=== PATIENT | female | born 1950 | race Caucasian/White ===

== ENCOUNTER → 2024-01-13 | Outpatient (CLI) | payer MEDICARE, MEDICAID, SELFPAY ==
[2024-01-13 10:44] LABS: Glucose Estimated Average 103 mg/dL (80-131); Hemoglobin A1C 5.2 % Hgb (4.8-6.0)
[2024-01-13 11:00] LABS: Sed Rate (ESR) 14 mm/hr (0-30)
[2024-01-13 11:03] LABS: Basophils # (Auto) 0.1 Thou/mm3 (0.0-0.2); Basophils % (Auto) 1 % (0-2.5); Eosinophils # (Auto) 0.1 Thou/mm3 (0.0-0.5); Eosinophils % (Auto) 1 % (0-10); Hematocrit 36.4 % (36.0-46.0); Hemoglobin 12.7 g/dL (12.0-16.0); Immature Granulocytes % (Auto) 0 % (0-0); Immature Granulocytes Auto 0.02 Thou/mm3 (0.00-0.00); Lymphocytes # (Auto) 2.5 Thou/mm3 (1.0-4.8); Lymphocytes % (Auto) 26 % (10-50); Mean Corpuscular HGB Conc 34.9 g/dl (31.0-37.0); Mean Corpuscular Hemoglobin 33.5 pg (25.0-35.0); Mean Corpuscular Volume 96 fL (80-100); Monocytes # (Auto) 0.5 Thou/mm3 (0.0-0.8); Monocytes % (Auto) 6 % (0-12); Neutrophils # (Auto) 6.5 Thou/mm3 (1.8-7.7); Neutrophils % (Auto) 66 % (37-80); Nucleated Red Blood Cell % 0 /100 WBC (0); Platelet Count 279 Thou/mm3 (140-440); RDW Standard Deviation 44.1 fL (36.4-46.3); Red Blood Count 3.79 Miln/mm3 (4.00-5.20); White Blood Count 9.8 Thou/mm3 (3.6-11.0)
[2024-01-13 11:05] LABS: Alanine Aminotransferase 9 U/L (10-49); Albumin, Serum 4.2 gm/dL (3.4-4.8); Albumin/Globulin Ratio 2.2 (1.2-2.2); Alkaline Phosphatase 99 U/L (46-116); Anion Gap 5 (7-16); Aspartate Amino Transferase < 10 U/L (0-34); BUN/Creatinine Ratio 23 Ratio (12-20); Bilirubin,Direct 0.1 mg/dL (0.0-0.3); Bilirubin,Total 0.6 mg/dL (0.3-1.2); Blood Urea Nitrogen 18 mg/dL (9-23); C-Reactive Protein 5.6 mg/dL (0.0-0.9); Calcium 9.2 mg/dL (8.3-10.6); Calcium (Corrected) 9.2 mg/dL (8.5-10.1); Carbon Dioxide 29.2 mMol/L (20.0-31.0); Cardiac Risk Estimate 3.3 RATIO (3.7-5.6); Chloride 106 mMol/L (98-107); Cholesterol 180 mg/dL (132-200); Creatinine (Component) 0.8 mg/dL (0.6-1.3); Free T4 (Free Thyroxine) 1.13 ng/dL (0.89-1.76); Globulin 1.9 gm/dL (2.3-3.5); Glucose 93 mg/dL (74-106); HDL Cholesterol 55 mg/dL (40-60); LDL Cholesterol,Calculated 96 mg/dL (0-130); Osmolality,Calculated 281 (275-295); Potassium 3.8 mMol/L (3.4-5.1); Sodium 140 mMol/L (136-145); Thyroid Stimulating Hormone 1.22 uIU/mL (0.55-4.78); Total Protein 6.1 gm/dL (5.7-8.2); Triglycerides 146 mg/dL (30-150); eGFR > 60 See Note
[2024-01-13 11:28] LABS: B-Type Natriuretic Peptide 96 pg/mL (0-100)
[2024-01-13 14:32] LABS: Cocci Serology, IgM Negative (Negative)
[2024-01-14 13:47] LABS: Cocci Serology, IgG Negative (Negative)
== END | disposition home or self-care (01) ==
LOC: COPL 09:00
PROVIDERS: PCP Family Medicine; Referring Provider Internal Medicine Cardiovascular Disease; Visit Provider Nurse Practitioner
DX: I11.0 Hypertensive heart disease with heart failure (principal); I50.30 Unspecified diastolic (congestive) heart failure; R73.03 Prediabetes; R63.4 Abnormal weight loss; R05.9 Cough, unspecified
CPT/HCPCS: 36415; 80053; 80061; 80076; 83036; 83880; 84439; 84443; 85025; 85652; 86140; 86331; 86635

== ENCOUNTER 2024-01-23 12:24 | Emergency (ER) | payer MEDICARE, MEDICAID, SELFPAY ==
[2024-01-23 12:25] VITALS: BMI 19.0
[2024-01-23 12:32] VITALS: BP 155/64; PULSE 62; RESP 19; TEMP 36.8; O2SAT 95
--- NOTE | 2024-01-23 13:02 | XR_ITS ---
Examination:Right hip AP, lateral, AP pelvis 3 views Technique: Hip AP lateral, AP pelvis, 3 views Exam date and time:January 23, 2024 1314 hrs. Indications: Right hip pain today Findings: Moderate narrowing hip joints No right hip fracture or dislocation Left hip bones of the pelvis intact Impression: Moderate narrowing right hip joint.
--- NOTE | 2024-01-23 13:03 | EDNOTE_ITS ---
ED Back Injury Pain RME/HPI General Chief Complaint: Abdominal Pain Stated Complaint: RIGHT FLANK PAIN SINCE LAST NIGHT Time Seen by Provider: 01/23/24 12:33 Source: patient, RN notes reviewed and old records reviewed Arrival date/time: 01/23/24 12:24 Mode of arrival: ambulatory Limitations: no limitations RME / HPI RME / HPI Narrative: 73yof presents to ED with daughter for right lower back pain that initiated last night. No preceding injury or fall. Patient states pain worsens with movement and ambulation. No fever, n/v, abdominal pain, flank pain or urinary symptoms reported. No medications or treatments since symptom onset. Related Data Home Medications ?Medication ?Instructions ?Recorded ?Confirmed atorvastatin 10 mg tablet (Lipitor) 10 mg PO HS #0 tabs 07/30/16 05/16/18 bumetanide 0.5 mg tablet 0.5 mg PO daily PRN heart #0 tabs 07/30/16 05/16/18 lisinopril 5 mg tablet 5 mg PO QDAY #0 tabs 07/30/16 05/16/18 clopidogrel 75 mg tablet 75 mg PO QDAY 05/16/18 05/16/18 montelukast 10 mg tablet 10 mg PO QPM 05/16/18 05/16/18 tiotropium 2.5 mcg-olodaterol 2.5 2 puff inhalation QDAY 05/16/18 05/16/18 mcg/actuation mist for inhalation (Stiolto Respimat) Previous Rx's ?Medication ?Instructions ?Recorded metoprolol tartrate 25 mg tablet 25 mg PO BID #60 tabs 02/06/16 potassium chloride 8 mEq 8 meq PO QDAY ##30 02/06/16 capsule,extended release amoxicillin 875 mg-potassium 1 tab PO BID #6 tabs 05/20/18 clavulanate 125 mg tablet (Augmentin) acetaminophen 325 mg tablet (Pain 650 mg (2 x 325 mg) PO Q6H PRN 01/23/24 Relief (acetaminophen)) pain #30 tabs diclofenac sodium 1 % topical gel 2 g topical BID PRN pain #100 grams 01/23/24 lidocaine 5 % topical patch 1 patch topical QDAY #6 ea 01/23/24 Allergies Allergy/AdvReac Type Severity Reaction Status Date / Time levofloxacin [From Levaquin] Allergy Severe Anaphylaxis Verified 01/23/24 12:27 Review of Systems Review of Systems Systems Reviewed: All systems reviewed, normal except as documented Constitutional Constitutional: Denies fever(s) Gastrointestinal Gastrointestinal: Denies abdominal pain, Denies nausea and Denies vomiting Genitourinary Genitourinary: Denies dysuria, Denies flank pain and Denies hematuria Musculoskeletal Musculoskeletal: Reports back pain, Denies numbness and Denies tingling Neurologic Neurologic: Denies localized weakness, Denies numbness and Denies tingling Past Medical History Past Medical History CARDIAC: Positive Cardiac Disorders, Congestive Heart Failure and Hypertension RESPIRATORY: Positive Chronic Obstructive Pulmonary Disease (COPD) and Emphysema GENITOURINARY: Negative Renal Disease ENDOCRINE: Negative Diabetes Mellitus Type 1 or Diabetes Mellitus Type 2 Family History FAMILY HISTORY: Positive Family Cardiac Disorders OTHER FAMILY HX: Family history was significant for diabetes and coronary artery disease Social History SMOKING STATUS: Current some day smoker (Half a pack a day) SUBSTANCE USE: does not use Travel History EBOLA RISK: No ED Exam General Limitations: Present no limitations General appearance: Present alert and in no apparent distress Head Head exam: Present atraumatic and normocephalic Eye Eye exam: Present normal appearance, PERRL and EOMI ENT ENT exam: Present normal exam and mucous membranes moist Neck Neck exam: Present normal inspection and full ROM Chest Chest inspection: Present normal inspection and symmetric chest wall rise Respiratory Respiratory exam: Present normal lung sounds bilaterally; Absent respiratory distress Cardiovascular Cardiovascular exam: Present regular rate and normal rhythm Abdominal Exam Abdominal exam: Present soft; Absent distention, tenderness or guarding Extremities Exam Extremities exam: Present normal inspection and full ROM Back Exam Back exam: Present paraspinal tenderness (right lumbar); Absent CVA tenderness (R), CVA tenderness (L) or vertebral tenderness Neurological Exam Neurological exam: Present alert and oriented X3 Psychiatric Psychiatric exam: Present normal affect and normal mood Skin Skin exam: Present warm, dry, intact and normal color Course Quality Measures none Orders Category Date Time Status XR hip RT w pelvis 2-3V Stat Exams 01/23/24 13:02 Completed UA [Urinalysis] Stat Lab 01/23/24 13:10 Completed Acetaminophen Tab [Tylenol Tab] Med 01/23/24 13:02 Discontinued 650 mg PO X1 ONE Lidocaine 5% Patch Med 01/23/24 13:02 Discontinued 1 patch TOP X1 ONE Vital Signs Vital signs: Vital Signs Temperature 98.3 F 01/23/24 12:32 Pulse Rate 62 01/23/24 12:32 Respiratory Rate 19 01/23/24 12:32 Blood Pressure 155/64 H 01/23/24 12:32 Pulse Oximetry (%) 95 01/23/24 12:32 Oxygen Delivery Method Room Air 01/23/24 12:32 Back Pain / Injury MDM Narrative MDM Narrative:: 73yof presents to ED with daughter for right lower back pain that initiated last night. No preceding injury or fall. Patient states pain worsens with movement and ambulation. No fever, n/v, abdominal pain, flank pain or urinary symptoms reported. No medications or treatments since symptom onset. Patient reassessed. Pain improved after medications administered. Patient is neurologically intact, able to ambulate without difficulty. Encouraged rest, tylenol, ice/heat application prn. Stable for dc, RTED precautions given. Patient data External records reviewed:: [facility] previous records (admit 05/16/18 for copd exacerbation) Clinical information provided by:: patient and family Social determinants that could affect healthcare access:: none Patient has the following chronic illnesses:: copd, htn How is presenting disease/condition affected by chronic disease/condition?: uneffected by Evaluation data The following diagnostics were reviewed and interpreted by me:: radiology exam(s) Lab and/or radiology exams considered but not ordered:: none Interpretation Summary: Hip xrays: no fx per my read UA negative for leuks, blood Medications / Prescriptions Medications or Prescriptions considered but not ordered:: no antibiotics recommended at this time Medication administrations:: Medication Administration History Discontinued Medications Acetaminophen (Acetaminophen 325 Mg Tablet) 650 mg PO X1 ONE Stop: 01/23/24 13:03 Last Admin: 01/23/24 13:08 Dose: 650 mg Documented By: LORENE Lidocaine (Lidocaine 5% 1 Patch) 1 patch TOP X1 ONE Stop: 01/23/24 13:03 Last Admin: 01/23/24 13:08 Dose: 1 patch Documented By: LORENE above medications administered in ED Consultations Consultation(s) initiated? (list below): No Diagnosis Differential diagnosis back pain/injury: other (fracture, sprain, strain, contusion, msk pain, sciatica) Most likely diagnosis given after review of the tests above:: low back pain Admission Indicated Admission indicated?: not indicated Admission Request Was there a request for admission?: No Disposition Plan Disposition Plan: Discharge Discharge Attestation Discharge Attestation: The patient and all family members were given an opportunity to ask questions and understood the discharge instructions. Discharge instructions specifically effects, indications for sooner follow up or return to the emergency department, and the expected course of current diagnosis. Patient condition: Stable Discharge Plan Plan Patient Disposition: HOME (Self Care) Patient condition on transfer: Stable Prescriptions/Referrals Prescriptions/Med Rec: New acetaminophen [Pain Relief (acetaminophen)] 325 mg tablet 650 mg PO Q6H PRN (Reason: pain) Qty: 30 0RF lidocaine 5 % adhesive patch,medicated 1 patch topical QDAY Qty: 6 0RF Rx Instructions: leave on most painful area for up to 12 hrs diclofenac sodium 1 % gel 2 g topical BID PRN (Reason: pain) Qty: 100 0RF Rx Instructions: apply to single elbow, wrist or hand; for hand includes palm/fingers/back of hand No Action montelukast 10 mg tablet 10 mg PO QPM clopidogrel 75 mg tablet 75 mg PO QDAY Stiolto Respimat 2.5-2.5 mcg/actuation mist 2 puff INH QDAY metoprolol tartrate 25 MG tablet 25 mg PO BID Qty: 60 0RF potassium chloride 8 MEQ capsule, extended release 8 meq PO QDAY Qty: 30 0RF atorvastatin [Lipitor] 10 MG tablet 10 mg PO HS Qty: 0 bumetanide 0.5 MG tablet 0.5 mg PO daily PRN (Reason: heart) Qty: 0 lisinopril 5 MG tablet 5 mg PO QDAY Qty: 0 amoxicillin-pot clavulanate [Augmentin] 875-125 mg tablet 1 tab PO BID Qty: 6 0RF Rx Instructions: Start 05/21 Problem List Clinical Impression: Low back pain Patient/Caregiver Discharge Instructions Education Materials: ED Back Pain (Acute or Chronic) Print Language: Albanian Stand Alone Forms: Priyanka Award Info., Patient Portal Info Letter PA/RESOURCE CONSERVATION MANAGER Supervising Physician PA/RESOURCE CONSERVATION MANAGER Supervising Physician: Nakia
[2024-01-23] MEDS: ACETAMINOPHEN 325 MG TABLET 650 MG PO (13:08)
[2024-01-23] MEDS: LIDOCAINE 5% 1 PATCH TOP (13:08)
[2024-01-23 13:21] LABS: Collection Type, Urine Clean Catch; Squamous Epithelial Cell,Urine 0 /hpf (0-5)
[2024-01-23 13:45] LABS: Bilirubin,Urine Negative (Negative); Blood,Urine Negative (Negative); Clarity,Urine Clear (Clear/Hazy); Color,Urine Colorless (Lt Yel-Yel); Glucose, Urine Negative (Negative); Ketones,Urine Negative (Negative); Leukocyte Esterase,Urine Negative (Negative); Nitrite,Urine Negative (Negative); PH,Urine 6.5 (5.0-7.0); Protein,Urine Negative (Neg - Trace); RBC,Urine < 1 /hpf (0-3); Specific Gravity,Urine 1.004 (1.001-1.035); Urobilinogen,Urine Negative mg/dL (0.0-1.0); WBC,Urine < 1 /hpf (0-5)
== END 2024-01-23 14:17 | disposition home or self-care (01) ==
PROVIDERS: Physician Assistant; Emergency Provider Emergency Medicine
DX: M54.50 Low back pain, unspecified (principal)
CPT/HCPCS: 73502; 81001; 99283; A9270

== ENCOUNTER → 2024-03-03 | Outpatient (CLI) | payer MEDICARE, MEDICAID, SELFPAY ==
--- NOTE | 2024-03-03 | XR_ITS ---
Examination: PA lateral chest 2 views TECHNIQUE: Upright PA lateral chest 2 views Exam date and time: March 03, 2024 at 1246 hours Comparison the 2022 INDICATIONS: Congestion coughing shortness of breath 2 weeks FINDINGS: Prominent hyperexpansion Normal heart size No current pneumonia Accentuation basilar bronchovascular markings IMPRESSION: COPD Mild basilar bronchitis pattern
== END | disposition home or self-care (01) ==
LOC: CDIM 11:52
PROVIDERS: PCP Family Medicine; Referring Provider Nurse Practitioner; Visit Provider Nurse Practitioner
DX: J44.9 Chronic obstructive pulmonary disease, unspecified (principal)
CPT/HCPCS: 71046

== ENCOUNTER → 2024-05-26 | Outpatient (CLI) | payer MEDICARE, MEDICAID, SELFPAY ==
--- NOTE | 2024-05-26 09:52 | XR_ITS ---
Examination: PA lateral chest 2 views TECHNIQUE: Upright PA lateral chest 2 views Exam date and time: May 26, 2024 1029 hours Comparison March 03, 2024 INDICATIONS: Coughing 2 weeks. FINDINGS: Significant hyperexpansion Minor prominence left ventricle No pneumonia or pulmonary edema Moderate osteopenia IMPRESSION: COPD No pneumonia or pulmonary edema
[2024-05-26 11:27] LABS: Basophils # (Auto) 0.1 Thou/mm3 (0.0-0.2); Basophils % (Auto) 1 % (0-2.5); Eosinophils # (Auto) 0.1 Thou/mm3 (0.0-0.5); Eosinophils % (Auto) 1 % (0-10); Hematocrit 43.3 % (36.0-46.0); Hemoglobin 14.3 g/dL (12.0-16.0); Immature Granulocytes % (Auto) 0 % (0-0); Immature Granulocytes Auto 0.04 Thou/mm3 (0.00-0.00); Lymphocytes # (Auto) 2.7 Thou/mm3 (1.0-4.8); Lymphocytes % (Auto) 22 % (10-50); Mean Corpuscular Hemoglobin 32.3 pg (25.0-35.0); Mean Corpuscular Volume 98 fL (80-100); Monocytes # (Auto) 0.6 Thou/mm3 (0.0-0.8); Monocytes % (Auto) 5 % (0-12); Neutrophils # (Auto) 8.4 Thou/mm3 (1.8-7.7); Neutrophils % (Auto) 70 % (37-80); Nucleated Red Blood Cell % 0 /100 WBC (0); Platelet Count 402 Thou/mm3 (140-440); RDW Standard Deviation 45.9 fL (36.4-46.3); Red Blood Count 4.43 Miln/mm3 (4.00-5.20); White Blood Count 11.9 Thou/mm3 (3.6-11.0)
[2024-05-26 11:38] LABS: Glucose Estimated Average 108 mg/dL (80-131); Hemoglobin A1C 5.4 % Hgb (4.8-6.0)
[2024-05-26 11:45] LABS: Sed Rate (ESR) 29 mm/hr (0-30)
[2024-05-26 12:10] LABS: Alanine Aminotransferase 8 U/L (10-49); Albumin, Serum 4.6 gm/dL (3.4-4.8); Albumin/Globulin Ratio 1.8 (1.2-2.2); Alkaline Phosphatase 109 U/L (46-116); Anion Gap 6 (7-16); Aspartate Amino Transferase 21 U/L (0-34); BUN/Creatinine Ratio 14 Ratio (12-20); Bilirubin,Total 0.4 mg/dL (0.3-1.2); Blood Urea Nitrogen 11 mg/dL (9-23); C-Reactive Protein < 0.5 mg/dL (0.0-0.9); Calcium 9.8 mg/dL (8.3-10.6); Calcium (Corrected) 9.8 mg/dL (8.5-10.1); Carbon Dioxide 28.8 mMol/L (20.0-31.0); Cardiac Risk Estimate 2.6 RATIO (3.7-5.6); Chloride 107 mMol/L (98-107); Cholesterol 198 mg/dL (132-200); Creatinine (Component) 0.8 mg/dL (0.6-1.3); Free T3 3.3 pg/mL (2.3-4.2); Free T4 (Free Thyroxine) 1.36 ng/dL (0.89-1.76); Globulin 2.6 gm/dL (2.3-3.5); Glucose 99 mg/dL (74-106); HDL Cholesterol 76 mg/dL (40-60); LDL Cholesterol,Calculated 104 mg/dL (0-130); Osmolality,Calculated 282 (275-295); Potassium 4.3 mMol/L (3.4-5.1); Sodium 142 mMol/L (136-145); Thyroid Stimulating Hormone 1.05 uIU/mL (0.55-4.78); Total Protein 7.2 gm/dL (5.7-8.2); Triglycerides 89 mg/dL (30-150); eGFR > 60 See Note
[2024-05-26 12:13] LABS: Folate 22.91 ng/mL (>5.38); Vitamin B12 495 pg/mL (211-911); Vitamin D 25 Hydroxy Total 82.2 ng/mL (7.3-40.2)
[2024-06-01 06:27] LABS: Thyroid Peroxidase Antibodies* <1 IU/mL (<9)
== END | disposition home or self-care (01) ==
PROVIDERS: PCP Family Medicine; Referring Provider Registered Nurse Community Health; Visit Provider Nurse Practitioner
DX: J44.9 Chronic obstructive pulmonary disease, unspecified (principal); R63.4 Abnormal weight loss; Z79.891 Long term (current) use of opiate analgesic; Z83.3 Family history of diabetes mellitus; I13.0 Hypertensive heart and chronic kidney disease with heart failure and stage 1 through stage 4 chronic kidney disease, or unspecified chronic kidney disease; N18.9 Chronic kidney disease, unspecified; I50.9 Heart failure, unspecified; E78.2 Mixed hyperlipidemia
CPT/HCPCS: 36415; 71046; 80053; 80061; 82043; 82306; 82570; 82607; 82746; 83036; 84439; 84443; 84481; 85025; 85652; 86140; 86304; 86376

== ENCOUNTER → 2024-09-06 | Outpatient (CLI) | payer MEDICARE, MEDICAID, SELFPAY ==
[2024-09-06 10:25] LABS: Glucose Estimated Average 114 mg/dL (80-131); Hemoglobin A1C 5.6 % Hgb (4.8-6.0)
[2024-09-06 10:40] LABS: CA 125 5.0 U/mL (<30.2); Folate 22.25 ng/mL (>5.38); Vitamin B12 326 pg/mL (211-911); Vitamin D 25 Hydroxy Total 72.8 ng/mL (7.3-40.2)
== END | disposition home or self-care (01) ==
LOC: COPL 09:09
PROVIDERS: PCP Registered Nurse Community Health; Referring Provider Registered Nurse Community Health; Visit Provider Registered Nurse Community Health
DX: R63.4 Abnormal weight loss (principal); I50.9 Heart failure, unspecified; R05.9 Cough, unspecified; Z79.891 Long term (current) use of opiate analgesic; Z83.3 Family history of diabetes mellitus
CPT/HCPCS: 36415; 82306; 82607; 82746; 83036; 86304

== ENCOUNTER 2024-09-14 10:45 | Emergency (ER) | payer MEDICARE, MEDICAID, SELFPAY ==
[2024-09-14 11:21] VITALS: BP 148/62; PULSE 65; RESP 18; TEMP 36.6; O2SAT 95; BMI 19.5
--- NOTE | 2024-09-14 12:11 | XR_ITS ---
Examination: Duplex scan of the lower extremity, unilateral left Date and time of exam: September 14, 2024 1259 hours INDICATIONS: Left foot swelling and pain beginning 5 days ago, cellulitis pattern treated with antibiotics Technique: Duplex scan of the extremity veins using B-mode/grayscale imaging and Doppler spectral analysis and color flow Attention is directed to internal echogenicity, compression and augmentation involving these veins, color flow assessment, spectral analysis Findings: Major deep venous structures in the extremity demonstrate normal course and caliber. There is no evidence of deep vein thrombosis. Normal color flow and spectral analysis Impression: Negative for DVT..
--- NOTE | 2024-09-14 12:12 | EDNOTE_ITS ---
<Statement entered by Liss Grover MD - 09/15/24 09:35> As co-signing physician, I was present and available for consult prn. I concur with the plan and care as documented by the midlevel provider. Lower Extremity Injury RME/HPI General Chief Complaint: Ankle/Foot Injury Stated Complaint: Cellulitis of left foot Time Seen by Provider: 09/14/24 11:41 Arrival date/time: 09/14/24 10:45 RME / HPI RME / HPI Narrative: 73-year-old female patient was brought in by family for evaluation regarding left foot swelling. Patient was diagnosed with cellulitis few days ago, and was started on Keflex by her PCP, this morning family called PCP and was advised to go to emergency room for possible IV antibiotic. Patient family called PCP since last night patient has been complaining of pain to the foot. No fever noted patient is ambulatory denies any other complaints. Related Data Home Medications ?Medication ?Instructions ?Recorded ?Confirmed atorvastatin 10 mg tablet (Lipitor) 10 mg PO HS #0 tab s 07/30/16 05/16/18 bumetanide 0.5 mg tablet 0.5 mg PO daily PRN heart #0 tabs 07/30/16 05/16/18 lisinopril 5 mg tablet 5 mg PO QDAY #0 tabs 7 05/16/18 clopidogrel 75 mg tablet 75 mg PO QDAY 05/16/1805/16 montelukast 10 mg tablet 10 mg PO QPM 05/16/18 tiotropium 2.5 mcg-olodaterol 2.5 2 puff inhalation QD AY 05/16/18 05/16/18 mcg/actuation mist for inhalation (Stiolto Respimat) Previous Rx's ?Medication ?Instructions ?Recorded metoprolol tartrate 25 mg tablet 25 mg PO BID #60 tabs 02/06/16 potassium chloride 8 mEq 8 meq PO QDAY ##30 02/06/16 capsule,extended release amoxicillin 875 mg-potassium 1 tab PO BID #6 tabs 05/10 02/27 clavulanate 125 mg tablet (Augmentin) acetaminophen 325 mg tablet (Pain 650 mg (2 x 325 mg) PO Q6H PRN 01/23/24 Relief (acetaminophen)) pain #30 tabs diclofenac sodium 1 % topical gel 2 g topical BID PRN pain #100 grams 01/23/24 lidocaine 5 % topical patch 1 patch topical QDAY #6 ea 01/23/24 Allergies Allergy/AdvReac Type Severity Reaction Status Date / Time levofloxacin (From Levaquin) Allergy Severe Anaphylaxis Verified 09/14/24 10:50 Review of Systems Review of Systems Narrative Review of Systems: Review of system reviewed and within normal limits except mentioned in HPI ED Exam Narrative Physical exam: VITAL SIGNS: Reviewed. GENERAL APPEARANCE: Alert and interactive, follows commands, no acute distress, HEAD AND FACE: Non-traumatic. ENT: PERRL, pink conjunctivitis, eyelid no trauma, Mucous membrane moist. NECK: Supple, nontender, no nuchal rigidity. CHEST: No tenderness, no crepitus, no paradoxical movement, no retractions. LUNGS: Clear, well ventilated, symmetric, no rales, no wheezing, no ronchi, no stridor, good breath sounds bilaterally. HEART: Regular rate, regular rhythm, no murmur, no gallops. ABDOMEN: Soft, positive bowel sounds, nondistended, no guarding, nontender, no rebound, no masses, RECTAL: Deferred. GENITAL: Deferred. NEUROLOGICAL: Gross motor function intact sensory function intact, Appropriate for age. MUSCULOSKELETAL: low back nontender, full range of motion. EXTREMITIES: Left foot mild swelling, dorsal aspect, no redness, slightly tender, no skin breakdown, full range of motion. SKIN: Color pink, dry, no rash, no lacerations, no abrasions, no contusions. LYMPHATICS: Deferred. Course Quality Measures none Orders Category Date Time Status US venous doppler LE LT Stat Exams 09/14/24 12:11 Completed Vital Signs Vital signs: Vital Signs Temperature 97.9 F 09/14/24 11:21 Pulse Rate 65 09/14/24 11:21 Respiratory Rate 18 09/14/24 11:21 Blood Pressure 148/62 H 09/14/24 11:21 Pulse Oximetry (%) 95 09/14/24 11:21 Oxygen Delivery Method Room Air 09/14/24 11:21 Extremity Injury, Lower MDM Narrative MDM Narrative:: 73-year-old female patient was brought in by family for evaluation regarding left foot swelling. Patient was diagnosed with cellulitis few days ago, and was started on Keflex by her PCP, this morning family called PCP and was advised to go to emergency room for possible IV antibiotic. Patient family called PCP since last night patient has been complaining of pain to the foot. No fever noted patient is ambulatory denies any other complaints. Ultrasound of the lower extremities negative for DVT. Patient foot Patient stable for discharge home I did not notice any sign of infection of the foot at this time. Patient data External records reviewed:: None Clinical information provided by:: patient and family Social determinants that could affect healthcare access:: none Patient has the following chronic illnesses:: Hypertension congestive heart failure How is presenting disease/condition affected by chronic disease/condition?: exacerbated by Evaluation data The following diagnostics were reviewed and interpreted by me:: radiology exam(s) Lab and/or radiology exams considered but not ordered:: None Interpretation Summary: Ultrasound of the leg is negative for DVT Medications / Prescriptions Medications or Prescriptions considered but not ordered:: None Medication administrations:: None Consultations Consultation(s) initiated? (list below): No Diagnosis Extremity Injury, Lower Differential Diagnosis: ankle sprain and strain, ankle fracture and other (Swelling dorsum left foot) Most likely diagnosis given after review of the tests above:: Foot swelling Admission Indicated Admission indicated?: not indicated Explain why admission is indicated or not indicated:: Stable Admission Request Was there a request for admission?: No Disposition Plan Disposition Plan: Discharge Discharge Attestation Discharge Attestation: The patient and all family members were given an opportunity to ask questions and understood the discharge instructions. Discharge instructions specifically effects, indications for sooner follow up or return to the emergency department, and the expected course of current diagnosis. Patient condition: Stable Discharge Plan Plan Patient Disposition: HOME (Self Care) Discharge Disposition comment: Stable Prescriptions/Referrals Prescriptions/Med Rec: No Action montelukast 10 mg tablet 10 mg PO QPM clopidogrel 75 mg tablet 75 mg PO QDAY Stiolto Respimat 2.5-2.5 mcg/actuation mist 2 puff INH QDAY metoprolol tartrate 25 MG tablet 25 mg PO BID Qty: 60 0RF potassium chloride 8 MEQ capsule, extended release 8 meq PO QDAY Qty: 30 0RF atorvastatin [Lipitor] 10 MG tablet 10 mg PO HS Qty: 0 bumetanide 0.5 MG tablet 0.5 mg PO daily PRN (Reason: heart) Qty: 0 lisinopril 5 MG tablet 5 mg PO QDAY Qty: 0 amoxicillin-pot clavulanate [Augmentin] 875-125 mg tablet 1 tab PO BID Qty: 6 0RF Rx Instructions: Start 4/12 acetaminophen [Pain Relief (acetaminophen)] 325 mg tablet 650 mg PO Q6H PRN (Reason: pain) Qty: 30 0RF lidocaine 5 % adhesive patch,medicated 1 patch topical QDAY Qty: 6 0RF Rx Instructions: leave on most painful area for up to 12 hrs diclofenac sodium 1 % gel 2 g topical BID PRN (Reason: pain) Qty: 100 0RF Rx Instructions: apply to single elbow, wrist or hand; for hand includes palm/fingers/back of hand Referrals: Jose Redmond([facility])MD [Primary Care Provider] - In 1 week Problem List Clinical Impression: Foot swelling Patient/Caregiver Discharge Instructions Discharge Activity: activity as tolerated Education Materials: ED Leg Swelling in a Single Leg Additional Instructions: Thank you for the opportunity for serving you today. You are stable for discharged . You are advised to: Follow-up with your PCP in 1 to 2 days Return to ED for worsening of symptoms Increase oral fluids Take medication as prescribed prescribed by your PCP your Keflex Elevate legs as needed, or compression or Curt wrap as needed Print Language: Kyrgyz Stand Alone Forms: Priyanka Award Info., Patient Portal Info Letter JERRY/RACHEL Supervising Physician JERRY/RACHEL Supervising Physician: MD Lenore
[2024-09-14 14:04] VITALS: BP 138/66; PULSE 69; RESP 16; TEMP 36.6; O2SAT 97
== END 2024-09-14 14:05 | disposition home or self-care (01) ==
PROVIDERS: Emergency Provider Emergency Medicine; PCP Family Medicine
DX: M79.89 Other specified soft tissue disorders (principal)
CPT/HCPCS: 93971; 99282

== ENCOUNTER 2024-12-15 16:31 | Inpatient (IN) | payer MEDICARE, MEDICAID, SELFPAY ==
[2024-12-15 16:45] VITALS: BP 143/65; PULSE 79; RESP 20; O2SAT 97
--- NOTE | 2024-12-15 16:45 | XR_ITS ---
Examination: CT brain head without contrast. 2-D sagittal coronal reconstructions Date and time of exam: 12/15/2024, 4:52 p.m. INDICATION: Right-sided facial droop, duration approximately 1.5 hours COMPARISON: Brain MRI 04/04/2023 CTDI: vol (mGy): 42.7 DLP: (mGycm): 661 Technique: Multiple CT axial sections of the brain have been obtained, 5 mm slice thickness. Contrast has not been administered. 2-D sagittal, coronal reconstructions have been obtained Low dose protocols were performed. One or more of the following dose reduction techniques were used; automated exposure control, adjustment of the mA and/or KV according to patient size, use of iterative reconstruction technique. FINDINGS: BRAIN PARENCHYMA: No evidence for acute large vessel transcortical ischemic infarction, hemorrhage, mass, or midline shift. Global cerebral involutional changes are reidentified. Nonspecific bilateral cerebral white matter hypoattenuation most likely represents sequela of chronic ischemic microangiopathy in this age demographic. No cerebellar tonsillar ectopia. No apparent acute abnormality of the cerebellum. VENTRICLES / EXTRA-AXIAL SPACES: No hydrocephalus, extra-axial hematoma or mass. Bilateral ICA and vertebral artery atherosclerosis noted. CALVARIUM: No skull fracture or concerning focal lesion. SINUSES: No significant opacification of the paranasal sinuses. The visualized mastoid air cells are clear. OTHER EXTRACRANIAL STRUCTURES: No findings of acute significance. Sequela of ocular lens replacement surgery noted. IMPRESSION: Negative noncontrast head CT for acute intracranial abnormality. Results were immediately called to Dr. Arriaga via telephone on 12/15/2024 4:57 PM.
--- NOTE | 2024-12-15 16:45 | XR_ITS ---
Examination: CTA carotids with intravenous contrast CTA brain, head with intravenous contrast. 2-D sagittal, coronal reconstructions. 3-D reconstructions. Exam date and time: 12/15/2024 at 5:00 p.m. CTDI: vol (mGy) 14.8 DLP: (mGycm) 387 Technique: Multiple CTA axial brain, head carotid images post intravenous contrast injection 100 cc, [id number]. 2-D sagittal, coronal reconstructions. 3-D reconstructions, 3-D post processing including vascular maximum intensity projection images. Low dose protocols were performed. One or more of the following dose reduction techniques were used; automated exposure control, adjustment of the mA and/or KV according to patient size, use of iterative reconstruction technique. Findings: CT angiography of the head: The bilateral ICAs, ACAs, MCAs, training specialist, distal vertebral arteries and basilar artery are well opacified without apparent significant stenosis or occlusion. Prominent infundibulum versus aneurysm measuring 3.7 x 2.3 cm arises off of the right supraclinoid ICA directed medially (axial image 66). Calcific plaque is scattered throughout the bilateral ICAs. No evidence for enhancing intra-axial mass. CT angiography of the neck: There is common origin of the brachiocephalic artery and the left common carotid artery, normal anatomical variant. There is multifocal atherosclerotic plaque of the aorta and great vessels with resultant severe left subclavian artery stenosis axial image 185; coronal image 80). Plaque is present at the bilateral carotid bulbs and proximal ICAs without Unser hemodynamically significant stenosis on either side. No evidence for carotid artery dissection or occlusion. The bilateral vertebral arteries are patent, with mild calcific plaque identified bilaterally. There may be mild right vertebral artery stenosis due to plaque at the level of the C4 vertebral body (axial image 127). No acute fracture or subluxation is demonstrated in the cervical spine. Paraspinous soft tissues are unremarkable. The visualized portions of the lungs demonstrate emphysematous changes and minimal bronchial wall thickening without airspace consolidation or pleural effusion in the [id number]. A mild degree of mucus is identified in the tracheal lumen.. IMPRESSION: Negative CTA for hemodynamically significant stenosis, dissection, or occlusion in the head and neck. Right supraclinoid ICA prominent infundibulum versus aneurysm measuring 3.7 x 2.3 mm in transaxial dimensions. MRA of the head with and without contrast could be obtained for further evaluation. Multifocal atherosclerotic plaque as described with severe left subclavian artery stenosis.
[2024-12-15 16:59] LABS: Basophils # (Auto) 0.1 Thou/mm3 (0.0-0.2); Basophils % (Auto) 1 % (0-2.5); Eosinophils # (Auto) 0.2 Thou/mm3 (0.0-0.5); Eosinophils % (Auto) 2 % (0-10); Hematocrit 39.5 % (36.0-46.0); Hemoglobin 13.6 g/dL (12.0-16.0); Immature Granulocytes Auto 0.03 Thou/mm3 (0.00-0.00); Lymphocytes # (Auto) 3.7 Thou/mm3 (1.0-4.8); Lymphocytes % (Auto) 32 % (10-50); Mean Corpuscular HGB Conc 34.4 g/dl (31.0-37.0); Mean Corpuscular Hemoglobin 32.8 pg (25.0-35.0); Mean Corpuscular Volume 95 fL (80-100); Monocytes # (Auto) 0.8 Thou/mm3 (0.0-0.8); Monocytes % (Auto) 7 % (0-12); Neutrophils # (Auto) 6.7 Thou/mm3 (1.8-7.7); Neutrophils % (Auto) 58 % (37-80); Nucleated Red Blood Cell # 0.00 Thou/mm3 (0.00-0.00); Nucleated Red Blood Cell % 0 /100 WBC (0); Platelet Count 338 Thou/mm3 (140-440); RDW Standard Deviation 43.2 fL (36.4-46.3); Red Blood Count 4.15 Miln/mm3 (4.00-5.20); White Blood Count 11.5 Thou/mm3 (3.6-11.0)
[2024-12-15 17:00] VITALS: PULSE 74; RESP 18; RESP 98
[2024-12-15 17:11] VITALS: BMI 19.9
--- NOTE | 2024-12-15 17:12 | PC.NURSE ---
Patient was brought in by daughter from PCP office due to R facial droop noted at 1530. Patient had called daughter at 1300 with c/o L ankle swelling and discomfort. Upon arrival in ED stroke alert was called, and taken to CT Tele neurologist Dr. Azevedo assessed patient with an NIHSS score of 0 at 1653. Patient not a candidate for TNK at this time. Patient is A&O X4 denies pain at this time. No s/s of distress noted.
[2024-12-15 17:13] LABS: INR 1.0 (0.9-1.3); Partial Thromboplastin Time 28.2 Seconds (22.0-36.0); Prothrombin Time 10.3 Seconds (9.0-12.2)
--- NOTE | 2024-12-15 17:19 | EKG_ITS ---
[facility] Test Date: 2024-12-15 Pat Name: SHARIF YORK Department: Room: - Gender: Female [employer] Faculty Member: : [id number] Requested By: Patrick Lynn Order Number: [id number] Reading MD: Patrick Lynn Measurements Intervals [place] Rate: 76 P: 70 OK: 194 QRS: -59 QRSD: 132 T: 80 QT: 422 QTc: 475 Interpretive Statements SINUS RHYTHM LEFT AXIS DEVIATION [QRS AXIS < -30] INTRAVENTRICULAR CONDUCTION DELAY [130+ ms QRS DURATION] No previous ECG available for comparison /[id number]
[2024-12-15] MEDS: SODIUM CHLORIDE 0.9% 1000 ML 1,000 ML 100 ML IV (17:21)
--- NOTE | 2024-12-15 17:25 | PD.TNEURO ---
Tele Neuro Consultation Consultation Date 12/15/24 Most Recent Vital Signs Last Vital Signs Pulse 74 12/15/24 17:00 Resp 18 12/15/24 17:00 BP 143/65 H 12/15/24 16:45 Pulse Ox 97 12/15/24 16:45 O2 Del Method Room Air 12/15/24 16:45 Laboratory-Coagulation Panel PT 10.3 Seconds (9.0-12.2) 12/15/24 16:40 INR 1.0 (0.9-1.3) 12/15/24 16:40 APTT 28.2 Seconds (22.0-36.0) 12/15/24 16:40 Consultation Narrative [facility] Tele[facility]urology Consult Services Patient Name:???Mica Buckley Date of :???1950 Identification Number:??? Date of Service:???12/15/2024 16:38:14 Diagnosis:?R29.810 - Facial numbness/ Facial weakness Impression: ?74F with PMHx HTN, dementia, COPD, CHF, CAD, smoking, presents with new onset R facial droop. ?Her daughter Radha is at bedside, states patient was well when she left for work at 0900, then called her at 1pm saying her left foot was hurting and swollen, Radha came home and took her to PCP who noticed R facial droop, and BP was in the 1-teens systolic which is low for her, and directed them to come to the ER. ?Patient confirms the above as well. ?Radha states patient has dementia, can ambulate unassisted but needs help with all basic ADLs. ?She has never had facial droop or stroke in the past. ?On exam she has mild R facial droop, no other deficits. ?DDX includes new acute ischemic stroke vs recrudescence of prior deficits. ? ? ? Our recommendations are outlined below. Recommendations: ? Stroke/Telemetry Floor ? Neuro Checks (Q4) ? Bedside Swallow Eval ? DVT Prophylaxis ? Head of Bed 30 Degrees ? Euglycemia and Avoid Hyperthermia (PRN Acetaminophen) ?NPO until bedside swallow; continue home plavix, MR brain w/o; TTE, lipid panel, TSH, HA1c; P2Y12 assay; permissive HTN up to 180/100 for 12 hours; PT/OT/ST eval Sign Out: ? Discussed with Emergency Department Provider Advanced Imaging:Advanced imaging has been ordered. Results pending. Metrics: Last Known Well: 12/15/2024 09:00:00 Dispatch Time: 12/15/2024 16:38:14 Arrival Time: 12/15/2024 16:31:00 Initial Response Time: 12/15/2024 16:42:01Symptoms: R facial droop . Initial patient interaction: 12/15/2024 16:52:39 NIHSS Assessment Completed: 12/15/2024 16:56:43Patient is not a candidate for Thrombolytic. Thrombolytic Medical Decision: 12/15/2024 16:56:45Patient was not deemed candidate for Thrombolytic because of following reasons: LKW outside 4.5 hr window. . Stroke severity too mild (non-disabling) . CT Head: CT head unremarkable for acute infarction or hemorrhage per Radiology: no acute changes Primary Provider Notified of Diagnostic Impression and Management Plan on: 12/15/2024 17:23:04 History of Present Illness:Patient is a 74 year old Female. Patient was brought by private transportation with symptoms of R facial droop . 74F with PMHx HTN, dementia, COPD, CHF, smoking, presents with new onset R facial droop. Her daughter Radha is at bedside, states patient was well when she left for work at 0900, then called her at 1pm saying her left foot was hurting and swollen, Radha came home and took her to PCP who noticed R facial droop, and BP was in the 1-teens systolic which is low for her, and directed them to come to the ER. Patient confirms the above as well. Radha states patient has dementia, can ambulate unassisted but needs help with all basic ADLs. She has never had facial droop or stroke in the past. ? Past Medical History: ?Hypertension ?Coronary Artery Disease ?Dementia/MCI ?There is no history of Diabetes Mellitus ?There is no history of Stroke ?There is no history of Seizures Medications: No Anticoagulant use? Antiplatelet use:?Yes?plavix Reviewed EMR for current medications Allergies:? Reviewed Social History: Smoking: Yes Family History: There is no family history of premature cerebrovascular disease pertinent to this consultation ROS : 14 Points Review of Systems was performed and was negative except mentioned in HPI. Past Surgical History: There Is No Surgical History Contributory To Today?s Visit ? Examination: BP(183/77),?Pulse(74), 1A: Level of Consciousness - Alert; keenly responsive?+ 0 1B: Ask Month and Age - Both Questions Right?+ 0 1C: Blink Eyes & Squeeze Hands - Performs Both Tasks?+ 0 2: Test Horizontal Extraocular Movements - Normal?+ 0 3: Test Visual Arnold - No Visual Loss?+ 0 4: Test Facial Palsy (Use Grimace if Obtunded) - Partial paralysis (lower face)?+ 2 5A: Test Left Arm Motor Drift - No Drift for 10 Seconds?+ 0 5B: Test Right Arm Motor Drift - No Drift for 10 Seconds?+ 0 6A: Test Left Leg Motor Drift - No Drift for 5 Seconds?+ 0 6B: Test Right Leg Motor Drift - No Drift for 5 Seconds?+ 0 7: Test Limb Ataxia (FNF/Heel-Ware) - No Ataxia?+ 0 8: Test Sensation - Normal; No sensory loss?+ 0 9: Test Language/Aphasia - Normal; No aphasia?+ 0 10: Test Dysarthria - Normal?+ 0 11: Test Extinction/Inattention - No abnormality?+ 0 NIHSS Score:?2 Pre-Morbid Modified [place] Scale: 1 Points = No significant disability despite symptoms; able to carry out all usual duties and activities Spoke with :?Dr. Arriaga This consult was conducted in real time using interactive audio and video technology. Patient was informed of the technology being used for this visit and agreed to proceed. Patient located in hospital and provider located at home/office setting. Patient is being evaluated for possible acute neurologic impairment and high probability of imminent or life-threatening deterioration. I spent total of 35 minutes providing care to this patient, including time for face to face visit via telemedicine, review of medical records, imaging studies and discussion of findings with providers, the patient and/or family. Dr Tiffany Azevedo [facility] For Inpatient follow-up with [facility] physician please call [facility] at . As we are not an outpatient service for any post hospital discharge needs please contact the hospital for assistance. If you have any questions for the [facility] physicians or need to reconsult for clinical or diagnostic changes please contact us via [facility] at . Non-radiologist review of imaging performed to assist with emergent clinical decision-making. Remote physician workstations do not possess the same resolution, calibration, or diagnostic capabilities as hospital-based radiology reading stations, and formal radiologist read is necessary. Signature :Dana Azevedo
[2024-12-15 17:27] LABS: Alanine Aminotransferase < 7 U/L (10-49); Albumin, Serum 4.8 gm/dL (3.4-4.8); Albumin/Globulin Ratio 2.5 (1.2-2.2); Alcohol, Blood Medical < 10.0 mg/dL (0-10.0); Alkaline Phosphatase 91 U/L (46-116); Anion Gap 10 (7-16); Aspartate Amino Transferase 22 U/L (0-34); BUN/Creatinine Ratio 10 Ratio (12-20); Bilirubin,Total 0.4 mg/dL (0.3-1.2); Blood Urea Nitrogen 10 mg/dL (9-23); Calcium 9.3 mg/dL (8.3-10.6); Calcium (Corrected) 9.3 mg/dL (8.5-10.1); Carbon Dioxide 28.4 mMol/L (20.0-31.0); Chloride 105 mMol/L (98-107); Creatinine (Component) 1.0 mg/dL (0.6-1.3); Estimated Creatinine Clearance 29.2 mL/min (>60); Globulin 1.9 gm/dL (2.3-3.5); Glucose 83 mg/dL (74-106); Magnesium 2.1 mg/dL (1.6-2.6); Osmolality,Calculated 282 (275-295); Potassium 3.4 mMol/L (3.4-5.1); Sodium 143 mMol/L (136-145); Total Protein 6.7 gm/dL (5.7-8.2); Troponin I < 0.020 ng/mL (0.0-0.045); eGFR 58 See Note
[2024-12-15 17:28] LABS: B-Type Natriuretic Peptide 47 pg/mL (0-100)
--- NOTE | 2024-12-15 17:29 | PD.EDNEURO ---
Neuro Symptoms Deficit-RME/HPI General Chief Complaint: Neuro Symptoms/Deficit Stated Complaint: RIGHT FACIAL DROOP AT 1530, LEFT FOOT SWOLLEN AT 1 Time Seen by Provider: 12/15/24 16:44 Arrival date/time: 12/15/24 16:31 Limitations: no limitations RME / HPI RME / HPI Narrative: 74 year ld female with history of dementia, CHF, hypertension, COPD presents to the ED brought in by daughter for evaluation of right facial droop beginning at 3:30PM today while at doctors office. Daughter reports the patient was at her usual state of health this morning and at about 9AM had taken her blood pressure which was within normal limits. States at about 1:30PM the patient began complaining of left ankle pain and swelling without any known injury or trauma. State they consulted their PCP at the [facility] and while there noted the facial droop. No other associated symptoms reported. No headache, facial numbness/tingling, unilateral weakness, vision changes, or changes to her speech. Related Data Home Medications ?Medication ?Instructions ?Recorded ?Confirmed atorvastatin 10 mg tablet (Lipitor) 10 mg PO HS #0 tabs 07/30/16 05/16/18 bumetanide 0.5 mg tablet 0.5 mg PO daily PRN heart #0 tabs 07/30/16 05/16/18 lisinopril 5 mg tablet 5 mg PO QDAY #0 tabs 07/30/16 05/16/18 clopidogrel 75 mg tablet 75 mg PO QDAY 05/16/18 05/16/18 montelukast 10 mg tablet 10 mg PO QPM 05/16/18 05/16/18 tiotropium 2.5 mcg-olodaterol 2.5 2 puff inhalation QDAY 05/16/18 05/16/18 mcg/actuation mist for inhalation (Stiolto Respimat) Previous Rx's ?Medication ?Instructions ?Recorded metoprolol tartrate 25 mg tablet 25 mg PO BID #60 tabs 02/06/16 potassium chloride 8 mEq 8 meq PO QDAY ##30 02/06/16 capsule,extended release amoxicillin 875 mg-potassium 1 tab PO BID #6 tabs 05/20/18 clavulanate 125 mg tablet (Augmentin) acetaminophen 325 mg tablet (Pain 650 mg (2 x 325 mg) PO Q6H PRN 01/23/24 Relief (acetaminophen)) pain #30 tabs diclofenac sodium 1 % topical gel 2 g topical BID PRN pain #100 grams 01/23/24 lidocaine 5 % topical patch 1 patch topical QDAY #6 ea 01/23/24 Allergies Allergy/AdvReac Type Severity Reaction Status Date / Time levofloxacin (From Levaquin) Allergy Severe Anaphylaxis Verified 12/15/24 16:40 Review of Systems Review of Systems Systems Reviewed: All systems reviewed, normal except as documented Past Medical History Past Medical History CARDIAC: Positive Cardiac Disorders, Hypercholesterolemia, Congestive Heart Failure and Hypertension RESPIRATORY: Positive Chronic Obstructive Pulmonary Disease (COPD) and Emphysema Family History FAMILY HISTORY: Positive Family Cardiac Disorders Social History SMOKING STATUS: Never smoker SECOND HAND EXPOSURE: Yes SUBSTANCE USE: does not use ED Exam General Limitations: Present no limitations General appearance: Present alert and in no apparent distress Head Head exam: Present atraumatic and normocephalic Eye Eye exam: Present normal appearance, PERRL and EOMI ENT ENT exam: Present normal oropharynx and mucous membranes moist Neck Neck exam: Present normal inspection, full ROM and trachea midline Chest Chest inspection: Present normal inspection and symmetric chest wall rise Respiratory Respiratory exam: Present normal lung sounds bilaterally Cardiovascular Cardiovascular exam: Present regular rate, normal rhythm and normal heart sounds Abdominal Exam Abdominal exam: Present soft and normal bowel sounds Extremities Exam Extremities exam: Present full ROM and other (Left ankle with 2+ edema, no erythema, no TTP ) Back Exam Back exam: Present normal inspection and full ROM Neurological Exam Neurological exam: Present alert, oriented X3 and other (right facial droop otherwise neuro exam is unremarkable, no slurred speech) Psychiatric Psychiatric exam: Present normal affect and normal mood Skin Skin exam: Present warm, dry, intact and normal color Course Quality Measures Suspected type of Stroke: Non Acute Last known well (date): 12/15/24 Last known well (time): 09:00 Tenecteplase given: Reason(s) TPA not given: Outside the time window and Use of NOAC (eliquis, xarelto, or pradaxa) not given stroke Orders Category Date Time Status Bedside Blood Glucose NOW Care 12/15/24 16:45 Active Bedside Blood Glucose NOW Care 12/15/24 16:45 Active COVID-19 Screening Questionnaire NOW Care 12/15/24 17:41 Active Instant Potato Processor NOW Care 12/15/24 16:45 Active Continuous Pulse Oximetry NOW Care 12/15/24 16:45 Completed Decision to Admit X1 Care 12/15/24 17:41 Active EKG (ED ONLY) *Do not use* NOW Care 12/15/24 17:19 Completed IV [Insert IV] NOW Care 12/15/24 16:44 Active Insert IV NOW Care 12/15/24 16:45 Active NIH Stroke Scale now Care 12/15/24 16:45 Active NPO NOW Care 12/15/24 16:45 Active Neuro Check Q15MIN Care 12/15/24 16:45 Active Nurse Swallow Screen x1 Care 12/15/24 16:45 Active Consult to Neurology / Tele-Neurology Routine Cons 12/15/24 16:[address] angio stroke protocol Stat Exams 12/15/24 16:[address] stroke protocol Stat Exams 12/15/24 16:45 Completed EKG (ED Only) Stat Exams 12/15/24 17:19 Draft Alcohol, Blood Medical Stat Lab 12/15/24 16:40 Completed B-Type Natriuretic Peptide Stat Lab 12/15/24 16:40 Completed CBC Stat Lab 12/15/24 16:40 Completed Comprehensive Metabolic Panel Stat Lab 12/15/24 16:40 Completed Drug Screen,Urine Stat Lab 12/15/24 16:45 Ordered Magnesium Stat Lab 12/15/24 16:40 Completed Partial Thromboplastin Time Stat Lab 12/15/24 16:40 Completed Prothrombin Time with INR Stat Lab 12/15/24 16:40 Completed Troponin I Stat Lab 12/15/24 16:40 Completed Urinalysis Stat Lab 12/15/24 16:45 Ordered Urine Culture Stat Lab 12/15/24 16:45 Ordered Sodium Chloride 0.9% 1000 ml [Ns] 1,000 ml Med 12/15/24 16:45 Active IV Q10H Oxygen Delivery NOW RT 12/15/24 16:45 Active Vital Signs Vital signs: Vital Signs Pulse Rate 79 12/15/24 16:45 Respiratory Rate 20 12/15/24 16:45 Blood Pressure 143/65 H 12/15/24 16:45 Pulse Oximetry (%) 97 12/15/24 16:45 Oxygen Delivery Method Room Air 12/15/24 16:45 Pulse ox is 97% on room air which is adequate. Neuro Symptoms / Deficit MDM Narrative MDM Narrative:: Cris Sagastume am scribing for and in the presence of Dr. Arriaga. Patient data External records reviewed:: [facility] previous records Clinical information provided by:: patient and family Social determinants that could affect healthcare access:: none Patient has the following chronic illnesses:: dementia, CHF, hypertension, COPD How is presenting disease/condition affected by chronic disease/condition?: exacerbated by Evaluation data The following diagnostics were reviewed and interpreted by me:: lab results, radiology exam(s) and EKG tracing(s) (EKG @ 19:21. Normal sinus rhythm, rate 76, left axis deviation, no STEMI. ) Lab and/or radiology exams considered but not ordered:: None Interpretation Summary: Ordering Physician: Patrick Arriaga MD Date of Service: 12/15/24 Procedure(s): CT stroke protocol Accession Number(s): [id number] cc: Patrick Arriaga MD; Romulo Suarez DO~ Examination: CT brain head without contrast. 2-D sagittal coronal reconstructions Date and time of exam: 12/15/2024, 4:52 p.m. INDICATION: Right-sided facial droop, duration approximately 1.5 hours COMPARISON: Brain MRI 04/04/2023 CTDI: vol (mGy): 42.7 DLP: (mGycm): 661 Technique: Multiple CT axial sections of the brain have been obtained, 5 mm slice thickness. Contrast has not been administered. 2-D sagittal, coronal reconstructions have been obtained Low dose protocols were performed. One or more of the following dose reduction techniques were used; automated exposure control, adjustment of the mA and/or KV according to patient size, use of iterative reconstruction technique. FINDINGS: BRAIN PARENCHYMA: No evidence for acute large vessel transcortical ischemic infarction, hemorrhage, mass, or midline shift. Global cerebral involutional changes are reidentified. Nonspecific bilateral cerebral white matter hypoattenuation most likely represents sequela of chronic ischemic microangiopathy in this age demographic. No cerebellar tonsillar ectopia. No apparent acute abnormality of the cerebellum. VENTRICLES / EXTRA-AXIAL SPACES: No hydrocephalus, extra-axial hematoma or mass. Bilateral ICA and vertebral artery atherosclerosis noted. CALVARIUM: No skull fracture or concerning focal lesion. SINUSES: No significant opacification of the paranasal sinuses. The visualized mastoid air cells are clear. OTHER EXTRACRANIAL STRUCTURES: No findings of acute significance. Sequela of ocular lens replacement surgery noted. IMPRESSION: Negative noncontrast head CT for acute intracranial abnormality. Results were immediately called to Dr. Arriaga via telephone on 12/15/2024 4:57 PM. Dictated By: Romulo Suarez DO Signed By: <Electronically signed by Romulo Suarez DO in OV> 12/15/24 1700 Ordering Physician: Patrick Arriaga MD Date of Service: 12/15/24 Procedure(s): CT angio stroke protocol Accession Number(s): [id number] cc: Patrick Arriaga MD; Morena Gaines; Romulo Suarez DO~ Examination: CTA carotids with intravenous contrast CTA brain, head with intravenous contrast. 2-D sagittal, coronal reconstructions. 3-D reconstructions. Exam date and time: 12/15/2024 at 5:00 p.m. CTDI: vol (mGy) 14.8 DLP: (mGycm) 387 Technique: Multiple CTA axial brain, head carotid images post intravenous contrast injection 100 cc, [id number]. 2-D sagittal, coronal reconstructions. 3-D reconstructions, 3-D post processing including vascular maximum intensity projection images. Low dose protocols were performed. One or more of the following dose reduction techniques were used; automated exposure control, adjustment of the mA and/or KV according to patient size, use of iterative reconstruction technique. Findings: CT angiography of the head: The bilateral ICAs, ACAs, MCAs, taker down, distal vertebral arteries and basilar artery are well opacified without apparent significant stenosis or occlusion. Prominent infundibulum versus aneurysm measuring 3.7 x 2.3 cm arises off of the right supraclinoid ICA directed medially (axial image 66). Calcific plaque is scattered throughout the bilateral ICAs. No evidence for enhancing intra-axial mass. CT angiography of the neck: There is common origin of the brachiocephalic artery and the left common carotid artery, normal anatomical variant. There is multifocal atherosclerotic plaque of the aorta and great vessels with resultant severe left subclavian artery stenosis axial image 185; coronal image 80). Plaque is present at the bilateral carotid bulbs and proximal ICAs without Unser hemodynamically significant stenosis on either side. No evidence for carotid artery dissection or occlusion. The bilateral vertebral arteries are patent, with mild calcific plaque identified bilaterally. There may be mild right vertebral artery stenosis due to plaque at the level of the C4 vertebral body (axial image 127). No acute fracture or subluxation is demonstrated in the cervical spine. Paraspinous soft tissues are unremarkable. The visualized portions of the lungs demonstrate emphysematous changes and minimal bronchial wall thickening without airspace consolidation or pleural effusion in the [id number]. A mild degree of mucus is identified in the tracheal lumen.. IMPRESSION: Negative CTA for hemodynamically significant stenosis, dissection, or occlusion in the head and neck. Right supraclinoid ICA prominent infundibulum versus aneurysm measuring 3.7 x 2.3 mm in transaxial dimensions. MRA of the head with and without contrast could be obtained for further evaluation. Multifocal atherosclerotic plaque as described with severe left subclavian artery stenosis. Dictated By: Romulo Suarez DO Signed By: <Electronically signed by Romulo Suarez DO in OV> 12/15/24 1742 Medications / Prescriptions Medications or Prescriptions considered but not ordered:: None Medication administrations:: Medication Administration History Sodium Chloride (Ns) 1,000 mls @ 100 mls/hr IV Q10H MENDEZ Stop: 01/14/25 16:44 Last Admin: 12/15/24 17:21 Dose: 100 mls/hr Documented By: ER See above Consultations Consultation(s) initiated? (list below): Yes Consultation #1 (Physician, Specialty, Details): 1723: I spoke with teleneurologist Dr. Azevedo. She recommended to continue Plavix and admit. Recommends permissive hypertension up to 180/100. Will admit for stroke work-up. Consultation #2 (Physician, Specialty, Details): I spoke with hospitalist team C for admission. Diagnosis Neuro Differential Diagnosis: subarachnoid hemorrhage, cerebrovascular accident and transient cerebral ischemia Most likely diagnosis given after review of the tests above:: CVA Admission Indicated Admission indicated?: indicated Admission Request Was there a request for admission?: Yes Admission Attestation Admission request attestation: Discussed case with [] from Hospitalist service regarding admission. Discussed patients ED course, exam findings, labs, and radiology results. The Hospitalist [agrees,declines] to accept the patient for admission. Disposition Plan Disposition Plan: Admit Discharge Plan Plan Patient Disposition: Admit Acute Care w/in Hospital Prescriptions/Referrals Prescriptions/Med Rec: No Action montelukast 10 mg tablet 10 mg PO QPM clopidogrel 75 mg tablet 75 mg PO QDAY Stiolto Respimat 2.5-2.5 mcg/actuation mist 2 puff INH QDAY metoprolol tartrate 25 MG tablet 25 mg PO BID Qty: 60 0RF potassium chloride 8 MEQ capsule, extended release 8 meq PO QDAY Qty: 30 0RF atorvastatin [Lipitor] 10 MG tablet 10 mg PO HS Qty: 0 bumetanide 0.5 MG tablet 0.5 mg PO daily PRN (Reason: heart) Qty: 0 lisinopril 5 MG tablet 5 mg PO QDAY Qty: 0 amoxicillin-pot clavulanate [Augmentin] 875-125 mg tablet 1 tab PO BID Qty: 6 0RF Rx Instructions: Start 4/12 acetaminophen [Pain Relief (acetaminophen)] 325 mg tablet 650 mg PO Q6H PRN (Reason: pain) Qty: 30 0RF lidocaine 5 % adhesive patch,medicated 1 patch topical QDAY Qty: 6 0RF Rx Instructions: leave on most painful area for up to 12 hrs diclofenac sodium 1 % gel 2 g topical BID PRN (Reason: pain) Qty: 100 0RF Rx Instructions: apply to single elbow, wrist or hand; for hand includes palm/fingers/back of hand Referrals: Morena Gaines FNP [Primary Care Provider] - In 1 week Problem List Clinical Impression: Cerebrovascular accident Patient/Caregiver Discharge Instructions Print Language: Greenlandic Stand Alone Forms: Priyanka Award Info., Patient Portal Info Letter
[2024-12-15 18:07] VITALS: BP 159/69; PULSE 77; RESP 20; TEMP 37.1; O2SAT 95
[2024-12-15 18:27] VITALS: PULSE 77; RESP 18; RESP 98
--- NOTE | 2024-12-15 18:28 | ECHO_ITS ---
Patient Info Name: Mica Buckley Age: 74 years : 1950 Gender: Female Ht: 145 cm Wt: 42 kg BSA: 1.30 m2 BP: 151 / 83 mmHg HR: 100 bpm Heart Rhythm: Atrial Fibrillation Exam Date: 12/16/2024 8:24 AM Admit Date: 12/15/2024 Site: [facility] Room Number: 274 Patient Status: I Exam Type: CA echo doppler complete Bit Welder: Lorrie Crandall Ordering Physician: Karissa Archibald Study Info Indications stroke w/u - Contrast/Agitated Saline Contrast/Ag. Saline: Agitated Saline Amount: --- ml Primary Location: S2NX Left Ventricular Outflow Tract Name Value Normal LVOT 2D LVOT Diameter 1.9 cm LVOT Doppler LVOT Peak Velocity 106 cm/s LVOT Mean Gradient 2 mmHg LVOT VTI 18 cm LVOT VTI/AV VTI Ratio 0.8 LVOT Stroke Volume 51 ml Pulmonic Valve Name Value Normal PV Doppler PV Peak Velocity 132 cm/s Mitral Valve Name Value Normal MV Doppler MV Decel [place] 758 cm/s2 MV PHT 41 ms MV Area (PHT) 5.4 cm2 4.0-5.0 MV Diastolic Function MV E Peak Velocity 107 cm/s Tricuspid Valve Name Value Normal TV Regurgitation Doppler TR Peak Velocity 233 cm/s Estimated PAP/RSVP RA Pressure 3 mmHg <=5 PA Systolic Pressure 25 mmHg <36 RV Systolic Pressure 25 mmHg <36 Aortic Valve Name Value Normal AV 2D/MM AV Cusp Sep (MM) 0.9 cm AV Doppler AV Peak Velocity 128 cm/s AV Mean Gradient 3 mmHg AV VTI 22 cm AV Area (Cont Eq VTI) 2.3 cm2 >=3.0 AV Area (Cont Eq Guido) 2.3 cm2 AV DI (Guido) 0.83 AV Regurgitation 2D LVOT Area 2.8 cm2 Ventricles Name Value Normal LV Dimensions 2D/MM IVS Diastolic Thickness (2D) 0.8 cm 0.6-0.9 LVID Diastole (2D) 3.5 cm 3.8-5.2 LVIW Diastolic Thickness (2D) 0.8 cm 0.6-0.9 LVID Systole (2D) 2.3 cm 2.2-3.5 LVOT Diameter 1.9 cm LV Mass (2D Cubed) 75.29 g 67.00-162.00 LV Mass Index (2D Cubed) 58 g/m2 43-95 Relative Wall Thickness (2D) 0.46 <=0.42 IVS/LVIW Diastolic Thickness (2D) 1.00 0.00-1.50 LV Fractional Shortening/Ejection Fraction 2D/MM LV Fractional Shortening (2D) 34 % 27-45 LV EF (2D Teichholz) 64 % Atria Name Value Normal LA Dimensions LA Volume (4C A-L) 34 ml LA Volume (BP A-L) 26 ml Left Ventricle Left ventricular chamber dimension is normal. Left ventricular systolic function is normal with visually estimated ejection fraction of 65-70%. There is normal geometry noted in the left ventricle. Left ventricular segmental wall motion is normal. There is indeterminate diastolic function in the left ventricle. Right Ventricle Right ventricular chamber dimension is normal. Right ventricular systolic function is normal. Left Atrium Left atrial chamber dimension is normal. Right Atrium Right atrial chamber dimension is normal. Aortic Valve The aortic valve is trileaflet. There is mild aortic valve sclerosis. There is no aortic valve stenosis with a peak velocity of 128 cm/s, mean gradient of 3 mmHg, and aortic valve area of 2.3 cm2. There is no aortic valve regurgitation. Pulmonic Valve The pulmonic valve is normal. There is no pulmonic valve stenosis. There is no pulmonic regurgitation. Mitral Valve The mitral valve has thickened leaflets. There is no mitral valve stenosis. There is trace mitral valve regurgitation. Tricuspid Valve The tricuspid valve leaflets are normal. There is no tricuspid valve stenosis. There is mild tricuspid valve regurgitation. No pulmonary hypertension, estimated pulmonary arterial systolic pressure is 25 mmHg and systemic blood pressure of 151 mmHg in systole. Pericardium/Pleural The pericardium appears normal. There is no pericardial effusion. No pleural effusion visualized. Inferior Vena Cava Normal inferior vena cava with >50% collapse upon inspiration consistent with normal right atrial pressure, 3 mmHg. Aorta The aortic measurements are indexed to age and body surface area. The aortic root at the sinus of Valsalva is not well visualized. The prox ascending aorta is not well visualized. Summary 1. Left ventricle size is normal and systolic function is normal. Estimated ejection fraction is 65-70%. 2. Right ventricle chamber size is normal and systolic function is normal. Estimated RVSP is 25 mmHg. 3. There is mild aortic valve sclerosis with no stenosis and no regurgitation. 4. There is trace mitral valve regurgitation. 5. There is mild tricuspid valve regurgitation. 6. Normal IVC with estimated RA pressure 3 mmHg. 7. Bubble study negative for any PFO or ASD. Report Signatures Finalized by Joseph Grajeda on 12/17/2024 01:08 AM
--- NOTE | 2024-12-15 18:30 | ESHP_ITS ---
<Statement entered by Eileen Salgado MD - 12/16/24 08:31> Ms. Ina (Marie) is a 74 y/o female with PMH tobacco use disorder, COPD on 2L home O2, dementia, CHF (unknown type), HFpEF unknown EF (follows Dr. Conrad), CAD who presented to the ED after daughter noticed right lower facial droop and right lower extremity weakness. Patient's daughter is at bedside who explained that this morning patient was fine however around 1 PM she noticed the patient complained of weakness in the right lower extremity and had significant right facial droop. Denied any slurred speech or vision changes. Patient denied any previous similar episodes. In the ED teleneuro is consulted, tPA was not administered due to outside of the window and recommended to continue home Plavix. Will admit for complete CVA workup.. Patient was seen and examined by me personally. I have directly supervised and reviewed documentation by the team resident and agree with its findings. ------- Plan of care was discussed with the attending, Dr. Ludy Salgado, PGY-2 Documentation for date of: 12/15/24 HPI History of Present Illness History of present illness: Ms. Ina (Marie) is a 74 y/o female with PMH nicotine dependence, COPD on 2L home O2, dementia, CHF (unknown type), CAD who presented to the ED on 12/15 with right lower facial droop. LKAW 1300 on 12/15. Daughter noticed patient started to have right lower facial droop and slumped to the side in her chair. She did not lose consciousness or have dizziness. Denies headaches, acute changes in vision, shortness of breath, chest pain/pressure, paresthesias, or weakness. Patient noticed that her left ankle was more swollen than the right with tenderness to palpation. Denies recent falls or trauma. [employer] [facility] Monitor: Dr. Conrad Neurologist: Dr. Portillo in [place] ED course: Afebrile, VSS. Labs significant for 11.5, eGFR 58. Troponin unremarkable. EtOH <10. EKG NSR HR 76, QTc 475. CT head negative for acute hemorrhage, mass effect, midline shift. Positive for old stroke right parietal?. CTA negative for LVO. Given 1L NS. PMHx: nicotine dependence, COPD on 2L home O2, dementia, CHF (unknown type), CAD, recent cellulitis (finished Keflex) Allergies: Levaquin Home meds: pending med rec SgHx: C section x2 SHx: Smokes 1PPD. Denies EtOH or recreational drug use. Lives with daughter, ROSS Garcia ([phone]) FHx: none reported Review of Systems Review of Systems Narrative Review of Systems: 14 point ROS negative other than HPI Exam Vital Signs Temp Pulse Resp BP Pulse Ox O2 Del Method 98.7 F 77 20 159/69 H 95 Room Air 12/15/24 18:07 12/15/24 18:07 12/15/24 18:07 12/15/24 18:07 12/15/24 18:07 12/15/24 18:07 Narrative Exam General: No acute distress, well nourished Eye: PERRL, EOMI, normal conjunctiva, no scleral icterus HENT: Normocephalic, atraumatic, normal hearing, moist oral mucosa, poor dentition Neck: Supple, non-tender, no JVD, no lymphadenopathy Lungs: Clear to auscultation bilaterally, non-labored respirations, symmetric chest rise, no use of accessory muscles Heart: Normal S1 and S2, no S3 or S4 appreciated. Normal rate and regular rhythm, no murmurs, rubs gallops, or edema. Peripheral pulses intact bilaterally, capillary refill brisk distally Abdomen: Soft, non-tender, non-distended, normal bowel sounds. No guarding or rebound tenderness. Musculoskeletal: Normal range of motion and strength. Mild left ankle swelling, mild TTP Skin: Skin is warm, dry, no rashes or lesions. Psychiatric: Cooperative, appropriate mood and affect Neurologic: Mental status: Orientation: Oriented to person, place, time, and situation Communication: Patient is cooperative and can follow simple instructions Language: Speech fluent, normal rate and volume, comprehension intact Cranial nerves: CN II: Visual rosas intact CN III: Pupils equal, round, and reactive to light CN III, IV, : No gaze deviation, no nystagmus Horizontal pursuit: intact Vertical pursuit: intact Ptosis: none CN V: Facial sensation to light touch intact bilaterally at the forehead, cheeks, and jaw line CN VII: Right lower facial droop CN VIII: Able to hear and respond to conversation at normal volume, intact to finger rub CN IX, X: Palate elevation symmetric, uvula midline CN XI: Head turn and shoulder shrug strong, symmetric bilaterally CN XII: Normal tongue protrusion without deviation, no fasciculations Motor: Normal bulk and tone No atrophy No abnormal movements or fasciculations Muscle strength: Shoulder abduction: R 5/5 L 5/5 Elbow flexion: R 5/5 L 5/5 Elbow extension: R 5/5 L 5/5 Hip flexion: R 5/5 L 5/5 Hip extension: R 5/5 L 5/5 Knee flexion: R 5/5 L 5/5 Knee extension: R 5/5 L 5/5 Sensory: RUE: Light touch intact LUE: Light touch intact RLE: Light touch intact LLE: Light touch intact Cerebellum: RUE: No dysmetria (finger to nose) LUE: No dysmetria (finger to nose) RLE: No dysmetria (heel to jacob) LLE: No dysmetria (heel to jacob) Results: Labs 12/16/24 05:51 12/16/24 05:51 Labs: Short CBC 12/15/24 Range/Units 16:40 WBC 11.5 H (3.6-11.0) Thou/mm3 Hgb 13.6 (12.0-16.0) g/dL Hct 39.5 (36.0-46.0) % Plt Count 338 (140-440) Thou/mm3 BMP 12/15/24 16:40 Sodium 143 Potassium 3.4 Chloride 105 Carbon Dioxide 28.4 BUN 10 Creatinine 1.0 Glucose 83 Calcium 9.3 Cardiac Enzymes 12/15/24 Range/Units 16:40 Troponin I < 0.020 (0.0-0.045) ng/mL Liver Function 12/15/24 Range/Units 16:40 Total Bilirubin 0.4 (0.3-1.2) mg/dL AST 22 (0-34) U/L ALT < 7 L (10-49) U/L Alkaline Phosphatase 91 (46-116) U/L Albumin 4.8 (3.4-4.8) gm/dL Quality Measures Quality Measures stroke Suspected type of Stroke: Non Acute Last known well (date): 12/15/24 Last known well (time): 09:00 Tenecteplase given: Reason(s) Tenecteplase not given: Outside the time window and Use of NOAC (eliquis, xarelto, or pradaxa) not given Rehab services: PT evaluation ordered and Speech Language Pathology eval ordered VTE Prophylaxis: pharmaceutical Antithrombotic by day 2:: not indicated (describe) Statin ordered: >75 y/o moderate or high intensity dose Anticoagulation ordered for A-fib or flutter (current or hx): not indicated Advance care planning discussed with:: patient and child Medications Home Medications and Allergies Home Medications ?Medication ?Instructions ?Recorded ?Confirmed ?Type bumetanide 0.5 mg tablet 0.5 mg PO daily PRN heart #0 tabs 07/30/16 12/16/24 History clopidogrel 75 mg tablet 75 mg PO QDAY 05/16/1812/16 History montelukast 10 mg tablet 10 mg PO QPM 05/16/18 History alendronate 70 mg tablet 70 mg PO .week 12/16/2409/02 History amlodipine 5 mg tablet 5 mg PO DAILY 12/16/2412/16 History budesonide 160 mcg-glycopyr 9 2 inh inhalation BID 09/0212/16/24 History mcg-formot 4.8 mcg/actuation HFA inhaler (Breztri Aerosphere) bumetanide 1 mg tablet 1 mg PO .am 12/16/24 5 History clonidine HCl 0.1 mg tablet 0.1 mg PO BID 12/16/2409/02 History levocetirizine 5 mg tablet 5 mg PO HS 12/16/24 5 History magnesium oxide 400 mg (241.3 mg 400 mg PO HS 12/16/24 12/16/24 History magnesium) tablet memantine 10 mg tablet 10 mg PO BID 12/16/24 History Allergies Allergy/AdvReac Type Severity Reaction Status Date / Time levofloxacin (From [facility]) Allergy Severe Anaphylaxis Verified 12/15/24 16:40 Visit Medications Acetaminophen (Acetaminophen 325 Mg Tablet) 650 mg PO Q6H PRN PRN Reason: Fever >100.3 Stop: 01/14/25 18:25 Acetaminophen (Acetaminophen 325 Mg Tablet) 650 mg PO Q6H PRN PRN Reason: PAIN SCALE 1-3 (mild Stop: 01/14/25 18:25 Albuterol/Ipratropium (Albuterol/Ipratropium (Duoneb) Rt Matilde 3 Ml Nebu) 3 ml INH Q8HRRT MENDEZ Stop: 01/15/25 06:59 Heparin Sodium (Porcine) (Heparin Sod Inj 5000 Unit/Ml Vial) 5,000 unit SC Q8HR MENDEZ Stop: 12/29/24 21:59 Sodium Chloride (Ns) 1,000 mls @ 100 mls/hr IV Q10H MENDEZ Stop: 01/14/25 16:44 Last Admin: 12/15/24 17:21 Dose: 100 mls/hr Ondansetron HCl (Ondansetron Inj 2 Mg/Ml Inj 2 Ml) 4 mg IVP Q6H PRN; Protocol PRN Reason: NAUSEA OR VOMITING Stop: 01/14/25 18:25 Assessment & Plan Plan Ms. Buckley is a 74 y/o female with PMH nicotine dependence, COPD on 2L home O2, dementia, CHF (unknown type), CAD who presented to the ED on 12/15 with right lower facial droop. LKAW 1300 on 12/15. Admitted for stroke workup. #Right lower facial droop #suspected cva Hx stroke/TIA: yes, seen on CT head Hx afib: none Smoking hx: 1PPD Initial symptoms: right lower facial droop - persistent LKAW: 13:00 on 12/15 Initial NIHSS: 2 Inital BP: 143/65 EKG: NSR HR 76, QTc 475 Initial glucose: 83 A1C: pending Lipids: pending TSH: pending Troponin: negative CT head w/o: negative for acute hemorrhage, mass effect or midline shift. Chronic infarct right parietal CTA head/neck w/: negative for LVO. Right ICA prominent infundibulum vs aneurysm MRI/MRA w/ and w/o: pending TTE: pending Meds given: 1L NS Not candidate for tPA or thrombectomy DDX: Large vessel atherosclerosis (thrombus), cardioembolic, small vessel (lacunar) disease, hypercoagulable state, arterial dissection, vasculitis Plan: - Neuro Checks q4h - Permissive HTN. Antihypertensives PRN if BP >220/120 or c/f end-organ damage/contraindications. Can give labetalol PO or IV or Vasotec IV with a goal of 15% reduction in BP during the first 24 hours. - Aspiration Precautions, Head of bed 30 degrees - Euglycemia and avoid Hyperthermia - Consulted neuro, appreciate recs - Refer PT, speech eval - Plavix 75 mg daily (home med) - Atorvastatin 80 mg QHS - Pending MRI, A1C, lipids, TSH, UDS, TTE #Left ankle swelling No recent trauma, falls Plan: - Tylenol PRN - CTM swelling #COPD On 2L home O2 Plan: - Continuous O2 monitoring, supplemental O2 - Duoneb #CHF #CAD Follows with Dr. Conrad Plan: - Pending TTE - Pending med rec #Dementia Follows with neurologist in [place] Plan: - Pending med rec #Nicotine use disorder Smokes 1PPD Plan: - Nicotine patch #Hypertension Plan: - Pending med rec Checklist Dispo: Admit to tele for q4h neuro checks Lines: PIV Diet: Regular, Ensures consulted psychiatry physician Bowel Reg: doc/senna PRN VTE ppx: heparin subQ GI ppx: n/a Pain mgmt: Tylenol PRN Code status: full Plan discussed with Dr. Naseem Salgado and Dr. Ludy Archibald MD PGY1 Attending Provider Attestation/Addendum I, Alma Delia Boston DO, attest that I was physically present for the steen portions of the service and evaluated the patient with the resident and I reviewed and discussed the case with the resident and agree with the resident's findings and plans of care as documented above Patient is a 74-year-old female with past medical history of COPD on 2 L nasal cannula, dementia, CHF, CAD who was brought in by her daughter this morning after patient reported that she had noted to have some ankle swelling and pain. She was subsequently brought to the [facility]. At the time, the physician recommended that patient be sent to the ED as patient was noted to have a new onset right facial droop during the encounter. Patient also had pain in her left ankle. Upon evaluation in the ED, a stroke alert was called. CT head was done and was negative for any acute intracranial findings. CTA of head and neck was done showing no evidence of stenosis, dissection or occlusion in the head and neck. She is noted to have multifocal atherosclerotic plaque with severe left subclavian artery stenosis. She is also noted to have right supraclinoid ICA prominent infundibulum versus aneurysm measuring 3.7 x 2.3 mm. Patient continues to have a right facial droop, but is able to articulate appropriately. She is noted to have mild left hand deviation to the left. Per daughter at bedside, patient has been able to answer the majority of her questions appropriately, but does become tangential at times which is new. Patient was seen by teleneuro in the ED, and recommends continuing Plavix at this time. No need for TNK or aspirin as patient had presented out of the window for thrombolytics. She had also been noted to have significantly elevated blood pressure with systolic in the 170s per daughter at bedside. Patient at baseline is able to ambulate independently. Will admit patient to telemetry for further workup and medical management of possible CVA. Will obtain MRI, echocardiogram, physical therapy and speech therapy as well. Will follow-up with neurology recommendations. Will allow for permissive hypertension at this time. Will hold home medications. Patient has been started on IV fluids in the ED. However, due to history of heart failure, will discontinue IV fluids.
[2024-12-15 19:08] LABS: Collection Type, Urine Catheter; Squamous Epithelial Cell,Urine 0 /hpf (0-5)
[2024-12-15 19:13] LABS: Bilirubin,Urine Negative (Negative); Blood,Urine Negative (Negative); Clarity,Urine Clear (Clear/Hazy); Color,Urine Colorless (Lt Yel-Yel); Glucose, Urine Negative (Negative); Ketones,Urine Trace (Negative); Leukocyte Esterase,Urine Negative (Negative); Nitrite,Urine Negative (Negative); PH,Urine 7.5 (5.0-7.0); Protein,Urine Negative (Neg - Trace); RBC,Urine < 1 /hpf (0-3); Specific Gravity,Urine 1.020 (1.001-1.035); Urobilinogen,Urine Negative mg/dL (0.0-1.0); WBC,Urine 1 /hpf (0-5)
[2024-12-15 20:00] VITALS: BP 162/89; PULSE 79; RESP 17; O2SAT 93
[2024-12-15] MEDS: NICOTINE PATCH 7 MG/24 HR PATCH.TD24 TOP (20:47)
[2024-12-15 20:59] LABS: Amphetamine/Methamp Scrn,U Negative (Negative); Barbiturate Screen,Urine Negative (Negative); Benzodiazepines Screen,Urine Negative (Negative); Benzoylecgonine Screen, Ur Negative (Negative); Fentanyl Screen,Urine Negative (Negative); Opiate Screen,Urine Negative (Negative); THC Screen,Urine Negative (Negative)
[2024-12-15 21:03] LABS: Glucose Estimated Average 105 mg/dL (80-131); Hemoglobin A1C 5.3 % Hgb (4.8-6.0)
[2024-12-15] MEDS: ATORVASTATIN CALCIUM 20 MG TABLET 80 MG PO (21:58)
[2024-12-15] MEDS: HEPARIN SOD INJ 5000 UNIT/ML VIAL SC (21:59)
[2024-12-16] VITALS (12 sets, daily range): BP systolic 151–188; BP diastolic 78–116; PULSE 81–941; RESP 15–93; TEMP 36.3–37.4; O2SAT 93–100; BMI 19.9; BMI 19.5
--- NOTE | 2024-12-16 | XR_ITS ---
EXAMINATION: MR stroke protocol [facility] HISTORY: Right facial droop, right lower extremity weakness for 1 day, , stroke w/u Study date and time: 12/16/2024 at 10:42 a.m. COMPARISON: Noncontrast head CT and CTA head and neck 12/15/2024 TECHNIQUE: Multiplanar multisequence MR imaging of the brain without and with intravenous gadolinium contrast. 19 mL of IV Gadavist was utilized. Additional unenhanced transaxial 3-D [id number] T1-weighted images through the [place] with MIP reconstructions. MRA of the neck was also performed with MIP reconstructions. FINDINGS: Brain: Redemonstration of global cerebral atrophy with central predominance and likely chronic ischemic microangiopathic changes involving both cerebral hemispheres. No restricted diffusion to indicate recent ischemic infarction, infection or other pathology. Ventricles: Ventriculomegaly which could be due to central predominant atrophy. No hemorrhage or mass. Extra-axial spaces: No masses or abnormal fluid collections. Patent basilar cisterns and sulci. Vascular: Major intracranial vessels are grossly patent. Craniocervical junction/other findings: No Chiari I malformation. Paranasal sinuses, mastoids, and orbits: Unremarkable. Orbits: Intact. Sequela of ocular lens replacement surgery noted. MRA head: Normal flow seen in the intracranial internal carotid arteries, vertebrobasilar system, and their proximal branches. No evidence for stenosis or occlusion. Redemonstration of probable prominent infundibula related to the hypophyseal arteries on the medial side of each ICA, right side greater than left. MRA neck: Normal caliber and patent bilateral carotid arteries and vertebral arteries. IMPRESSION: Negative brain MRI for recent ischemic infarction, hemorrhage or mass. Chronic ancillary findings as above. MRA head: No significant stenosis or occlusion. No definite aneurysm. Redemonstration of probable prominent infundibula related to the hypophyseal arteries at the bilateral ICAs. Normal MRA neck.
[2024-12-16] MEDS: HEPARIN SOD INJ 5000 UNIT/ML VIAL SC ×3 (05:04→21:08)
[2024-12-16 06:22] LABS: Basophils # (Auto) 0.1 Thou/mm3 (0.0-0.2); Basophils % (Auto) 1 % (0-2.5); Eosinophils # (Auto) 0.1 Thou/mm3 (0.0-0.5); Eosinophils % (Auto) 2 % (0-10); Hematocrit 39.8 % (36.0-46.0); Hemoglobin 13.3 g/dL (12.0-16.0); Immature Granulocytes Auto 0.04 Thou/mm3 (0.00-0.00); Lymphocytes # (Auto) 2.7 Thou/mm3 (1.0-4.8); Lymphocytes % (Auto) 29 % (10-50); Mean Corpuscular HGB Conc 33.4 g/dl (31.0-37.0); Mean Corpuscular Hemoglobin 32.8 pg (25.0-35.0); Mean Corpuscular Volume 98 fL (80-100); Monocytes # (Auto) 0.6 Thou/mm3 (0.0-0.8); Monocytes % (Auto) 7 % (0-12); Neutrophils # (Auto) 5.9 Thou/mm3 (1.8-7.7); Neutrophils % (Auto) 62 % (37-80); Nucleated Red Blood Cell # 0.00 Thou/mm3 (0.00-0.00); Nucleated Red Blood Cell % 0 /100 WBC (0); Platelet Count 330 Thou/mm3 (140-440); RDW Standard Deviation 44.8 fL (36.4-46.3); Red Blood Count 4.06 Miln/mm3 (4.00-5.20); White Blood Count 9.5 Thou/mm3 (3.6-11.0)
[2024-12-16] MEDS: ALBUTEROL/IPRATROPIUM (Duoneb) RT SOL 3 ML NEBU INH ×2 (06:39→16:43)
[2024-12-16 07:01] LABS: Alanine Aminotransferase < 7 U/L (10-49); Albumin, Serum 4.4 gm/dL (3.4-4.8); Albumin/Globulin Ratio 2.4 (1.2-2.2); Alkaline Phosphatase 91 U/L (46-116); Anion Gap 7 (7-16); Aspartate Amino Transferase 22 U/L (0-34); BUN/Creatinine Ratio 13 Ratio (12-20); Bilirubin,Total 0.3 mg/dL (0.3-1.2); Blood Urea Nitrogen 10 mg/dL (9-23); Calcium 8.7 mg/dL (8.3-10.6); Calcium (Corrected) 8.7 mg/dL (8.5-10.1); Carbon Dioxide 28.5 mMol/L (20.0-31.0); Cardiac Risk Estimate 2.7 RATIO (3.7-5.6); Chloride 110 mMol/L (98-107); Cholesterol 166 mg/dL (132-200); Creatinine (Component) 0.8 mg/dL (0.6-1.3); Estimated Creatinine Clearance 36.5 mL/min (>60); Globulin 1.8 gm/dL (2.3-3.5); Glucose 86 mg/dL (74-106); HDL Cholesterol 61 mg/dL (40-60); LDL Cholesterol,Calculated 88 mg/dL (0-130); Magnesium 2.0 mg/dL (1.6-2.6); Osmolality,Calculated 286 (275-295); Phosphorous 2.9 mg/dL (2.4-5.1); Potassium 3.4 mMol/L (3.4-5.1); Sodium 145 mMol/L (136-145); Thyroid Stimulating Hormone 1.46 uIU/mL (0.55-4.78); Total Protein 6.2 gm/dL (5.7-8.2); Triglycerides 84 mg/dL (30-150); eGFR > 60 See Note
--- NOTE | 2024-12-16 07:28 | ESPR_ITS ---
<Statement entered by Eileen Salgado MD - 12/16/24 16:36> Patient seen at bedside. Denies any weakness or vision changes. Patient underwent swallow eval and PT eval and MRI is negative for ischemic stroke. There continues to have a mild droop on right side. Will continue to monitor likely anticipate discharge tomorrow. Patient was seen and examined by me personally. I have directly supervised and reviewed documentation by the team resident and agree with its findings. ------- Plan of care was discussed with the attending, Dr. Luyd Salgado, PGY-2 Documentation for date of: 12/16/24 Subjective Subjective Interval history: NAEO. Denies ankle swelling or pain but has not gotten out of bed yet today. Continues to have left lower facial droop. Reports that she feels good today, denies headache, acute changes in vision, chest pain, weakness, or paresthesias. Exam Vital Signs Temp Pulse Resp BP Pulse Ox O2 Del Method O2 Flow Rate 97.6 F 88 17 151/83 H 100 Nasal Cannula 2 12/16/24 04:00 12/16/24 06:43 12/16/24 06:43 12/16/24 04:00 12/16/24 06:43 12/16/24 04:00 12/16/24 06:43 Narrative Exam General: No acute distress, well nourished Eye: PERRL, EOMI, normal conjunctiva, no scleral icterus HENT: Normocephalic, atraumatic, normal hearing, moist oral mucosa, poor dentition Neck: Supple, non-tender, no JVD, no lymphadenopathy Lungs: Clear to auscultation bilaterally, non-labored respirations, symmetric chest rise, no use of accessory muscles Heart: Normal S1 and S2, no S3 or S4 appreciated. Normal rate and regular rhythm, no murmurs, rubs gallops, or edema. Peripheral pulses intact bilaterally, capillary refill brisk distally Abdomen: Soft, non-tender, non-distended, normal bowel sounds. No guarding or rebound tenderness. Musculoskeletal: Normal range of motion and strength. Skin: Skin is warm, dry, no rashes or lesions. Psychiatric: Cooperative, appropriate mood and affect Neurologic: Mental status: Orientation: Oriented to person, place, time, and situation Communication: Patient is cooperative and can follow simple instructions Language: Speech fluent, normal rate and volume, comprehension intact Cranial nerves: CN II: Visual rosas intact CN III: Pupils equal, round, and reactive to light CN III, IV, : No gaze deviation, no nystagmus Horizontal pursuit: intact Vertical pursuit: intact Ptosis: none CN V: Facial sensation to light touch intact bilaterally at the forehead, cheeks, and jaw line CN VII: Right lower facial droop CN VIII: Able to hear and respond to conversation at normal volume, intact to finger rub CN IX, X: Palate elevation symmetric, uvula midline CN XI: Head turn and shoulder shrug strong, symmetric bilaterally CN XII: Normal tongue protrusion without deviation, no fasciculations Motor: Normal bulk and tone No atrophy No abnormal movements or fasciculations Muscle strength: Shoulder abduction: R 5/5 L 5/5 Elbow flexion: R 5/5 L 5/5 Elbow extension: R 5/5 L 5/5 Hip flexion: R 5/5 L 5/5 Hip extension: R 5/5 L 5/5 Knee flexion: R 5/5 L 5/5 Knee extension: R 5/5 L 5/5 Sensory: RUE: Light touch intact LUE: Light touch intact RLE: Light touch intact LLE: Light touch intact Cerebellum: RUE: No dysmetria (finger to nose) LUE: No dysmetria (finger to nose) RLE: No dysmetria (heel to jacob) LLE: No dysmetria (heel to jacob) Objective Labs 12/16/24 05:51 12/16/24 05:51 Labs: Laboratory Results - last 24 hr 12/15/24 12/15/24 12/16/24 16:40 18:24 05:51 WBC 11.5 H 9.5 RBC 4.15 4.06 Hgb 13.6 13.3 Hct 39.5 39.8 MCV 95 98 MCH 32.8 32.8 MCHC 34.4 33.4 RDW Std Deviation 43.2 44.8 Plt Count 338 330 Neut % (Auto) 58 62 Lymph % (Auto) 32 29 Barren % (Auto) 7 7 Eos % (Auto) 2 2 Baso % (Auto) 1 1 Neut # (Auto) 6.7 5.9 Lymph # (Auto) 3.7 2.7 Barren # (Auto) 0.8 0.6 Eos # (Auto) 0.2 0.1 Baso # (Auto) 0.1 0.1 Immature Gran # (Auto) 0.03 H 0.04 H Absolute Nucleated RBC 0.00 0.00 Immature Gran % 0 0 Nucleated RBC % 0 0 PT 10.3 INR 1.0 APTT 28.2 Sodium 143 145 Potassium 3.4 3.4 Chloride 105 110 H Carbon Dioxide 28.4 28.5 Anion Gap 10 7 BUN 10 10 Creatinine 1.0 0.8 Estim Creat Clear Calc 29.2 L 36.5 L eGFR 58 L > 60 BUN/Creatinine Ratio 10 L 13 Glucose [address] Glu mg/dL 105 Hemoglobin A1c 5.3 Calculated Osmolality 282 286 Calcium 9.3 8.7 Corrected Calcium 9.3 8.7 Phosphorus 2.9 Magnesium 2.1 2.0 Total Bilirubin 0.4 0.3 AST 22 22 ALT < 7 L < 7 L Alkaline Phosphatase 91 91 Troponin I < 0.020 B-Natriuretic Peptide 47 Total Protein 6.7 6.2 Albumin 4.8 4.4 Globulin 1.9 L 1.8 L Albumin/Globulin Ratio 2.5 H 2.4 H Triglycerides 84 Cholesterol 166 LDL Cholesterol, Calc 88 HDL Cholesterol 61 H Cholesterol/HDL Ratio 2.7 L TSH 1.46 Ur Collection Type Catheter Urine Color Colorless A Urine Clarity Clear Urine pH 7.5 H Ur Specific [place] 1.020 Urine Protein Negative Urine Glucose (UA) Negative Urine Ketones Trace Urine Blood Negative Urine Nitrite Negative Urine Bilirubin Negative Urine Urobilinogen (Auto) Negative Ur Leukocyte Esterase Negative Urine RBC < 1 Urine WBC 1 Ur Squamous Epith Cells 0 Urine Bacteria None Urine Opiates Screen Negative Urine Fentanyl Screen Negative Ur Barbiturates Screen Negative U Amphetamin/Meth Scrn Negative U Benzodiazepines Scrn Negative U Cocaine Metab Screen Negative U Marijuana (THC) Screen Negative Ethyl Alcohol < 10.0 Quality Measures Quality Measures stroke Suspected type of Stroke: Non Acute Last known well (date): 12/15/24 Last known well (time): 09:00 Tenecteplase given: Reason(s) Tenecteplase not given: Outside the time window and Use of NOAC (eliquis, xarelto, or pradaxa) not given Rehab services: PT evaluation ordered and Speech Language Pathology eval ordered VTE Prophylaxis: pharmaceutical Antithrombotic by day 2:: not indicated (describe) Statin ordered: >75 y/o moderate or high intensity dose Anticoagulation ordered for A-fib or flutter (current or hx): not indicated Advance care planning discussed with:: patient Assessment & Plan Assessment Current Active Medications: Generic Name Dose Route Start Last Admin Trade Name Freq PRN Reason Stop Dose Admin Acetaminophen 650 mg 12/15/24 18:26 Acetaminophen 325 Mg Tablet PO 01/14/25 18:25 Q6H PRN Fever >100.3 Acetaminophen 650 mg 12/15/24 18:26 Acetaminophen 325 Mg Tablet PO 01/14/25 18:25 Q6H PRN PAIN SCALE 1-3 (mild Albuterol/Ipratropium 3 ml 12/16/24 07:00 12/16/24 06:39 Albuterol/Ipratropium (Duoneb) Rt Matilde 3 Ml Nebu INH 01/15/25 06:59 3 ml Q8HRRT MENDEZ Administration Atorvastatin Calcium 80 mg 12/15/24 21:00 12/15/24 21:58 Atorvastatin Calcium 20 Mg Tablet PO 01/14/25 20:59 80 mg HS MENDEZ Administration Clopidogrel Bisulfate 75 mg 12/16/24 09:00 Clopidogrel Bisulfate 75 Mg Tablet PO 01/15/25 08:59 QDAY MENDEZ Heparin Sodium (Porcine) 5,000 unit 12/15/24 22:00 12/16/24 05:04 Heparin Sod Inj 5000 Unit/Ml Vial SC 12/29/24 21:59 5,000 unit Q8HR MENDEZ Administration Influenza Virus Vaccine Quadrival 0.5 ml 12/16/24 12:00 Influenza Virus 0.5 Ml Syringe IMi 12/16/24 12:01 .ONCE ONE Labetalol HCl 10 mg 12/15/24 18:48 Labetalol Inj 5 Mg/Ml Vial 20 Ml IVP 01/14/25 18:34 Q15MIN PRN sBP >180 or dBP >100 Nicotine 7 mg 12/15/24 18:45 12/15/24 20:47 Nicotine Patch 7 Mg/24 Hr Patch.Td24 TOP 01/14/25 18:44 7 mg QDAY MENDEZ Administration Ondansetron HCl 4 mg 12/15/24 18:26 Ondansetron Inj 2 Mg/Ml Inj 2 Ml IVP 01/14/25 18:25 Q6H PRN NAUSEA OR VOMITING Protocol Sennosides 1 tab 12/15/24 18:43 Senna/Docusate Sod 1 Tab Tablet PO 01/14/25 18:42 QDAY PRN CONSTIPATION Protocol Plan Ms. Buckley is a 74 y/o female with PMH nicotine dependence, COPD on 2L home O2, dementia, CHF (unknown type), CAD who presented to the ED on 12/15 with right lower facial droop. LKAW 1300 on 12/15. Admitted for stroke workup. #Right lower facial droop Hx stroke/TIA: yes, seen on CT head Hx afib: none Smoking hx: 1PPD Initial symptoms: right lower facial droop - persistent LKAW: 13:00 on 12/15 Initial NIHSS: 2 Inital BP: 143/65 EKG: NSR HR 76, QTc 475 Initial glucose: 83 UDS: negative A1C: 5.3 Lipids: Triglyceride 84, Cholesterol 166, LDL 88, HDL 61 TSH: 1.46 Troponin: negative CT head w/o: negative for acute hemorrhage, mass effect or midline shift. Chronic infarct right parietal CTA head/neck w/: negative for LVO. Right ICA prominent infundibulum vs aneurysm MRI/MRA w/ and w/o: pending TTE: TTE: LVEF 50-55%, normal systolic function, negative bubble study Meds given: 1L NS Not candidate for tPA or thrombectomy DDX: Large vessel atherosclerosis (thrombus), cardioembolic, small vessel (lacunar) disease, hypercoagulable state, arterial dissection, vasculitis Plan: - Neuro Checks q4h - Permissive HTN. Antihypertensives PRN if BP >220/120 or c/f end-organ damage/contraindications. Can give labetalol PO or IV or Vasotec IV with a goal of 15% reduction in BP during the first 24 hours. - Aspiration Precautions, Head of bed 30 degrees - Euglycemia and avoid Hyperthermia - Consulted neuro, appreciate recs - Refer PT, speech eval - Plavix 75 mg daily (home med) - Atorvastatin 40 mg QHS - Pending MRI #Left ankle swelling No recent trauma, falls Plan: - Tylenol PRN - CTM swelling #COPD On 2L home O2 Plan: - Continuous O2 monitoring, supplemental O2 - Duoneb #CAD Follows with Dr. Conrad TTE: LVEF 50-55%, normal systolic function, negative bubble study Plan: - Plavix 75 mg daily (home med) #Dementia Follows with neurologist in [place] Plan: - Memantine 10 mg PO BID (home med) #Nicotine use disorder Smokes 1PPD Plan: - Nicotine patch #Hypertension Plan: - Amlodipine 5 mg PO daily (home med) - Metoprolol 25 mg PO BID (home med) Checklist Dispo: q4h neuro checks Lines: PIV Diet: Regular, Ensures, consulted non destructive evaluation manager Bowel Reg: doc/senna PRN VTE ppx: heparin subQ GI ppx: n/a Pain mgmt: Tylenol PRN Code status: full Plan discussed with Dr. Naseem Salgado and Dr. Ludy Archibald MD PGY1 Attending Provider Attestation/Addendum I, Alma Delia Boston DO, attest that I was physically present for the steen portions of the service and evaluated the patient with the resident and I reviewed and discussed the case with the resident and agree with the resident's findings and plans of care as documented above Patient seen and evaluated this AM. Patient is very frustration since her daughter is not at bedside. Patient underwent MRI this AM. Pending PT. Right facial droop remains, no slurred speech. MS 4+/5 in all four extremities.
[2024-12-16] MEDS: NICOTINE PATCH 7 MG/24 HR PATCH.TD24 TOP (09:08)
[2024-12-16] MEDS: CLOPIDOGREL BISULFATE 75 MG TABLET PO (09:08)
[2024-12-16] MEDS: NICOTINE PATCH 21 MG/24 HR PATCH.TD24 TOP (12:07)
--- NOTE | 2024-12-16 12:07 | PC.NURSE ---
Per Dr. Archibald patient is okay to get amlodipine 5mg although she is on permissive hypertension.
--- NOTE | 2024-12-16 12:21 | PC.PT ---
PT eval only. Patient is back to her baseline/PLOF. Patient was xI with bed mobility and transfers. Patient needed supervision with ambulating using a FWW. Patient is safe to ambulate to the bathroom and in the halls with 1 staff and a FWW for safety. RN made aware.
--- NOTE | 2024-12-16 14:21 | ESPR_ITS ---
Tele Neuro Progress Note Progress Note Date 12/16/24 [facility] TeleNeurology Consult Services Routine Consult Follow-Up Patient Name:???Mica Buckley Date of :???1950 Identification Number:??? Date of Service:???12/16/2024 14:17:18 Diagnosis?R29.810 - Facial numbness/ Facial weakness ?I63.89 - Cerebrovascular accident (CVA) due to other mechanism ([facility]) Impression 74F with PMHx HTN, dementia, COPD, CHF, CAD, smoking, presents with new onset R facial droop. Her daughter Radha is at bedside, states patient was well when she left for work at 0900, then called her at 1pm saying her left foot was hurting and swollen, Radha came home and took her to PCP who noticed R facial droop, and BP was in the 1-teens systolic which is low for her, and directed them to come to the ER. Patient confirms the above as well. Radha states patient has dementia, can ambulate unassisted but needs help with all basic ADLs. She has never had facial droop or stroke in the past. On exam she has mild R facial droop, no other deficits. DDX includes new acute ischemic stroke vs recrudescence of prior deficits. 12/16/24: Concern for MRI negative stroke given clear right lower facial droop, multiple stroke RF - quit smoking - DAPT x 21-90 days (was already taking plavix daily) - consider vascular surgery consultation outpatient for severe subclavian stenosis to follow; however patient does not seem interested - goal LDL <70, goal A1c <7% - added endothelial labs to include RPR, vitamin b12/folate/vitaminD - echo pending - if echo negative recommend 30 day holter upon discharge and fu with PCP in 1 week, neurology in 2-4 weeks - following while here- please have PT/OT/DIPPER CLOCK AND WATCH HANDS eval/treat ? Our recommendations are outlined below Disposition :Neurology will follow Subjective right facial droop still there; dtr at bedside; no new findings; no fevers, etc Imaging MRI brain no acute stroke but noted small vessel disease CTA with: - right ICA supraclinoid infundibulum vs aneurysm - severe left subclavian artery stenosis/plaque - scattered plaque, moderate in bilateral carotid arteries per radiology ? Examination 1A: Level of Consciousness - Alert; keenly responsive?+ 0 1B: Ask Month and Age - Both Questions Right?+ 0 1C: Blink Eyes & Squeeze Hands - Performs Both Tasks?+ 0 2: Test Horizontal Extraocular Movements - Normal?+ 0 3: Test Visual Arnold - No Visual Loss?+ 0 4: Test Facial Palsy (Use Grimace if Obtunded) - Partial paralysis (lower face)? + 2 5A: Test Left Arm Motor Drift - No Drift for 10 Seconds?+ 0 5B: Test Right Arm Motor Drift - No Drift for 10 Seconds?+ 0 6A: Test Left Leg Motor Drift - No Drift for 5 Seconds?+ 0 6B: Test Right Leg Motor Drift - No Drift for 5 Seconds?+ 0 7: Test Limb Ataxia (FNF/Heel-Ware) - No Ataxia?+ 0 8: Test Sensation - Normal; No sensory loss?+ 0 9: Test Language/Aphasia - Normal; No aphasia?+ 0 10: Test Dysarthria - Normal?+ 0 11: Test Extinction/Inattention - No abnormality?+ 0 NIHSS Score:?0 ? This consult was conducted in real time using interactive audio and video technology. Patient was informed of the technology being used for this visit and agreed to proceed. Patient located in hospital and provider located at home/office setting. Telehealth Neurology consultation was provided. I spent 25 minutes providing telehealth care. This includes time spent for face to face visit via telemedicine, review of medical records, imaging studies and discussion of findings with providers, the patient and/or family. Dr Susana Tabares [facility] For Inpatient follow-up with [facility] physician please call [facility] at . As we are not an outpatient service for any post hospital discharge needs please contact the hospital for assistance. If you have any questions for the [facility] physicians or need to reconsult for clinical or diagnostic changes please contact us via [facility] at Signature :?Susana Tabares ? Most Recent Vital Signs Last Vital Signs Temp 97.5 F 12/16/24 12:00 Pulse 116 H 12/16/24 12:06 Resp 19 12/16/24 12:00 BP 188/116 H 12/16/24 12:06 Pulse Ox 93 L 12/16/24 12:00 O2 Del Method Room Air 12/16/24 12:00 O2 Flow Rate 2 12/16/24 06:43 Laboratory-Coagulation Panel PT 10.3 Seconds (9.0-12.2) 12/15/24 16:40 INR 1.0 (0.9-1.3) 12/15/24 16:40 APTT 28.2 Seconds (22.0-36.0) 12/15/24 16:40
[2024-12-16 15:15] LABS: Syphilis Nonreactive (Nonreactive)
--- NOTE | 2024-12-16 15:29 | PC.SS ---
Patient admitted for r/o stroke. PT worked with patient and notes indicate patient is at baseline. Pending Neuro and MRI.
[2024-12-16 15:50] LABS: Vitamin B12 237 pg/mL (211-911); Vitamin D 25 Hydroxy Total 49.3 ng/mL (7.3-40.2)
[2024-12-16] MEDS: SENNA/DOCUSATE SOD 1 TAB TABLET PO (18:33)
[2024-12-16] MEDS: ATORVASTATIN CALCIUM 20 MG TABLET 40 MG PO (20:29)
[2024-12-16] MEDS: METOPROLOL TARTRATE 25 MG TABLET PO (20:29)
[2024-12-16] MEDS: MEMANTINE HCL 5 MG TABLET 10 MG PO (20:30)
[2024-12-17] VITALS (9 sets, daily range): BP systolic 146–177; BP diastolic 67–87; PULSE 74–111; RESP 18–98; TEMP 36–36.6; O2SAT 94–100; BMI 19.5
[2024-12-17] MEDS: HEPARIN SOD INJ 5000 UNIT/ML VIAL SC (05:12)
--- NOTE | 2024-12-17 05:20 | PC.NURSE ---
CODE URIEL INITIATED. PT ATTEMPTING TO GET OUT OF BED. VERBALLY AGGRESSIVE AND ATTEMPTING TO HIT STAFF WITH HEART MONITOR. WHEN ATTEMPTING TO PLACE HER LEGS BACK INTO BED, PT STARTED KICKING. OLAZAPINE IM 10 MG X1 GIVEN.
[2024-12-17] MEDS: OLANZapine INJ 10 MG, Sterile Water 2.1 ML IM (05:29)
[2024-12-17] MEDS: ALBUTEROL/IPRATROPIUM (Duoneb) RT SOL 3 ML NEBU INH (06:25)
[2024-12-17 06:44] LABS: Basophils # (Auto) 0.1 Thou/mm3 (0.0-0.2); Basophils % (Auto) 1 % (0-2.5); Eosinophils # (Auto) 0.1 Thou/mm3 (0.0-0.5); Eosinophils % (Auto) 1 % (0-10); Hematocrit 43.4 % (36.0-46.0); Hemoglobin 15.1 g/dL (12.0-16.0); Immature Granulocytes Auto 0.04 Thou/mm3 (0.00-0.00); Lymphocytes # (Auto) 3.3 Thou/mm3 (1.0-4.8); Lymphocytes % (Auto) 27 % (10-50); Mean Corpuscular HGB Conc 34.8 g/dl (31.0-37.0); Mean Corpuscular Hemoglobin 33.3 pg (25.0-35.0); Mean Corpuscular Volume 96 fL (80-100); Monocytes # (Auto) 0.9 Thou/mm3 (0.0-0.8); Monocytes % (Auto) 7 % (0-12); Neutrophils # (Auto) 7.5 Thou/mm3 (1.8-7.7); Neutrophils % (Auto) 64 % (37-80); Nucleated Red Blood Cell # 0.00 Thou/mm3 (0.00-0.00); Nucleated Red Blood Cell % 0 /100 WBC (0); Platelet Count 336 Thou/mm3 (140-440); RDW Standard Deviation 43.8 fL (36.4-46.3); Red Blood Count 4.53 Miln/mm3 (4.00-5.20); White Blood Count 11.9 Thou/mm3 (3.6-11.0)
[2024-12-17 07:19] LABS: Alanine Aminotransferase < 7 U/L (10-49); Albumin, Serum 4.8 gm/dL (3.4-4.8); Albumin/Globulin Ratio 2.5 (1.2-2.2); Alkaline Phosphatase 98 U/L (46-116); Anion Gap 11 (7-16); Aspartate Amino Transferase 27 U/L (0-34); BUN/Creatinine Ratio 14 Ratio (12-20); Bilirubin,Total 0.4 mg/dL (0.3-1.2); Blood Urea Nitrogen 11 mg/dL (9-23); Calcium 9.9 mg/dL (8.3-10.6); Calcium (Corrected) 9.9 mg/dL (8.5-10.1); Carbon Dioxide 24.0 mMol/L (20.0-31.0); Chloride 107 mMol/L (98-107); Creatinine (Component) 0.8 mg/dL (0.6-1.3); Estimated Creatinine Clearance 36.5 mL/min (>60); Globulin 1.9 gm/dL (2.3-3.5); Glucose 112 mg/dL (74-106); Magnesium 2.0 mg/dL (1.6-2.6); Osmolality,Calculated 283 (275-295); Phosphorous 2.8 mg/dL (2.4-5.1); Potassium 3.5 mMol/L (3.4-5.1); Sodium 142 mMol/L (136-145); Total Protein 6.7 gm/dL (5.7-8.2); eGFR > 60 See Note
--- NOTE | 2024-12-17 07:30 | ESDS_ITS ---
<Statement entered by Alma Delia Boston DO - 12/17/24 13:33> I, Alma Delia Boston DO, attest that I was physically present for the steen portions of the service and evaluated the patient with the resident and I reviewed and discussed the case with the resident and agree with the resident's findings and plans of care as documented above Planned Discharge Date 12/17/24 DS: Providers Provider Date of admission: 12/15/24 18:26 Primary care physician: RACHEL Ann Admitting Provider: Alma Delia Boston DO Attending Provider on Admission: Alma Delia Boston DO Consults: 12/15/24 16:45 Consult to Neurology / Tele-Neurology Routine Comment: Consulting Provider: [facility] 12/15/24 18:30 Consult to Neurology / Tele-Neurology Stat Comment: Consulting Provider: Tim Evans 12/15/24 18:31 Referral Physical Therapy Routine Comment: Physician Instructions: Referral Registered Dietitian Routine Comment: Referral Speech Therapy Routine Comment: Attending Provider on DC: Karissa Archibald MD Discharging Provider: Karissa Archibald MD DS: Diagnosis Problem List Completed Was Problem List Reviewed/Reconciled?: Yes Hospital Course Hospital Course Hospital course: Hospital Course Ms. Buckley is a 74 y/o female with PMH nicotine dependence, COPD on 2L home O2, dementia, CAD who presented to the ED on 12/15 with persistent right lower facial droop. LKAW 1300 on 12/15. Admitted for stroke workup. CT head w/o negative for acute hemorrhage, mass effect or midline shift. CTA head/neck w/ negative for LVO. Right ICA prominent infundibulum vs aneurysm. MRI negative for acute infarct, chronic microvascular white matter changes. Severe left subclavian artery stenosis, patient can follow up outpatient with vascular surgery. Moderate bilateral carotid artery scattered plaques. Echo LVEF 65-70%, normal systolic function, negative bubble study. RPR negative, B12 normal, TSH normal. 25-OH vitamin D levels elevated. Patient was evaluated by tele-neurology who recommended DAPT for 21 days. Started high intensity atorvastatin. Patient counseled on smoking cessation. PT recommended outpatient PT, though patient refused. Patient stable and medically cleared for discharge to home with daughter and Radha HAWKINS. All questions were answered at this time. Diagnoses #Right lower facial droop #CVA, ruled out #Right ICA supraclinoid infundibulum vs aneurysm (ruled out) #Left subclavian artery stenosis #COPD #CAD #Dementia #Nicotine use disorder #Hypertension Discharge Instructions - Follow up with PCP within 1 week of discharge, if you do not have a primary care physician you can come see us at the [facility] by calling [phone] - Follow up with your neurologist - Follow up with vascular surgery due to findings on MRI - Take aspirin 81 mg once daily for 21 days, then stop - Continue to take Plavix - Take atorvastatin 40 mg once daily - You have been prescribed a blood thinner, which can cause bleeding so please be careful with falls, if you have an injury or fall please immediately go to the ED - Continue rest of medications as previously prescribed - Return to the ED or call EMS if symptoms return and/or worsens Karissa Archibald MD PGY1 Time Spent with Patient Time attestation: Total time spent providing and/or coordinating discharge services: Time spent: Greater than 30 minutes Exam Vital Signs Temp Pulse Resp BP Pulse Ox O2 Del Method O2 Flow Rate 97.8 F 91 18 177/67 H 100 Nasal Cannula 2 12/17/24 03:58 12/17/24 06:27 12/17/24 06:27 12/17/24 03:58 12/17/24 06:27 12/17/24 03:58 12/17/24 06:27 Narrative Exam General: No acute distress, well nourished Eye: PERRL, EOMI, normal conjunctiva, no scleral icterus HENT: Normocephalic, atraumatic, normal hearing, moist oral mucosa, poor dentition Neck: Supple, non-tender, no JVD, no lymphadenopathy Lungs: Clear to auscultation bilaterally, non-labored respirations, symmetric chest rise, no use of accessory muscles Heart: Normal S1 and S2, no S3 or S4 appreciated. Normal rate and regular rhythm, no murmurs, rubs gallops, or edema. Peripheral pulses intact bilaterally, capillary refill brisk distally Abdomen: Soft, non-tender, non-distended, normal bowel sounds. No guarding or rebound tenderness. Musculoskeletal: Normal range of motion and strength. Skin: Skin is warm, dry, no rashes or lesions. Psychiatric: Cooperative, appropriate mood and affect Neurologic: Mental status: Orientation: Oriented to person, place, time, and situation Communication: Patient is cooperative and can follow simple instructions Language: Speech fluent, normal rate and volume, comprehension intact Cranial nerves: CN II: Visual rosas intact CN III: Pupils equal, round, and reactive to light CN III, IV, : No gaze deviation, no nystagmus Horizontal pursuit: intact Vertical pursuit: intact Ptosis: none CN V: Facial sensation to light touch intact bilaterally at the forehead, cheeks, and jaw line CN VII: Right lower facial droop - improved from previous exam CN VIII: Able to hear and respond to conversation at normal volume, intact to finger rub CN IX, X: Palate elevation symmetric, uvula midline CN XI: Head turn and shoulder shrug strong, symmetric bilaterally CN XII: Normal tongue protrusion without deviation, no fasciculations Motor: Normal bulk and tone No atrophy No abnormal movements or fasciculations Muscle strength: Shoulder abduction: R 5/5 L 5/5 Elbow flexion: R 5/5 L 5/5 Elbow extension: R 5/5 L 5/5 Hip flexion: R 5/5 L 5/5 Hip extension: R 5/5 L 5/5 Knee flexion: R 5/5 L 5/5 Knee extension: R 5/5 L 5/5 Sensory: RUE: Light touch intact LUE: Light touch intact RLE: Light touch intact LLE: Light touch intact Cerebellum: RUE: No dysmetria (finger to nose) LUE: No dysmetria (finger to nose) RLE: No dysmetria (heel to jacob) LLE: No dysmetria (heel to jacob) Discharge Plan Plan Patient Disposition: HOME (Self Care) Patient condition on transfer: Stable Care Plan Goals: - Follow up with PCP within 1 week of discharge, if you do not have a primary care physician you can come see us at the [facility] by calling [phone] - Follow up with your neurologist - Follow up with vascular surgery due to findings on CTA regarding severe Left subclavian stenosis - You have been prescribed a blood thinner, which can cause bleeding so please be careful with falls, if you have an injury or fall please immediately go to the ED. Take aspirin with plavix for 21 days. - started on atorvastatin 40mg daily for atherosclerosis - Continue rest of medications as previously prescribed - Return to the ED or call EMS if symptoms return and/or worsens Prescriptions/Referrals Prescriptions/Med Rec: New atorvastatin 20 mg Tablet 40 mg PO HS 30 Days Qty: 60 0RF aspirin 81 mg capsule 81 mg PO QDAY 21 Days Qty: 21 0RF Continued montelukast 10 mg tablet 10 mg PO QPM clopidogrel 75 mg tablet 75 mg PO QDAY metoprolol tartrate 25 MG tablet 25 mg PO BID Qty: 60 0RF bumetanide 1 mg tablet 1 mg PO .am Patient Comments: TAKE ONE TABLET BY MOUTH EVERY MORNING A DIURETIC alendronate 70 mg tablet 70 mg PO .week Patient Comments: TAKE ONE TABLET BY MOUTH EVERY WEEK IN THE MORNING WITH GLASS OF WATER 30min BEFORE food Rx Instructions: thursday memantine 10 mg tablet 10 mg PO BID Patient Comments: TAKE ONE TABLET BY MOUTH TWICE DAILY FOR MEMORY levocetirizine 5 mg tablet 5 mg PO HS Patient Comments: TAKE ONE TABLET BY MOUTH AT BEDTIME FOR ALLERGY clonidine HCl 0.1 mg tablet 0.1 mg PO BID Patient Comments: TAKE ONE TABLET BY MOUTH TWICE DAILY amlodipine 5 mg tablet 5 mg PO DAILY Patient Comments: TAKE ONE TABLET BY MOUTH EVERY DAY HIGH BLOOD PRESSURE Allyson Aerosphere 160-9-4.8 mcg/actuation HFA aerosol inhaler 2 inh INHALATION BID Patient Comments: INHALE TWO PUFFS BY MOUTH TWICE DAILY Discontinued bumetanide 0.5 MG tablet 0.5 mg PO daily PRN (Reason: heart) Qty: 0 No Action magnesium oxide 400 mg (241.3 mg magnesium) tablet 400 mg PO HS Patient Comments: TAKE ONE TABLET BY MOUTH AT BEDTIME WITH FOOD Referrals: Morena Gaines FNP [Primary Care Provider] Patient/Caregiver Discharge Instructions Education Materials: Discharge Instructions for Stroke Print Language: Bulgarian Stand Alone Forms: Priyanka Award Info., Patient Portal Info Letter Discharge Order Discharge Orders: Discharge (Routine); Ordered 12/17/24 Ordered By: Karissa Archibald Quality Discharge Quality Measures VTE prophylaxis
[2024-12-17] MEDS: NICOTINE PATCH 21 MG/24 HR PATCH.TD24 TOP (08:09)
[2024-12-17] MEDS: MEMANTINE HCL 5 MG TABLET 10 MG PO (08:09)
[2024-12-17] MEDS: CLOPIDOGREL BISULFATE 75 MG TABLET PO (08:10)
[2024-12-17] MEDS: METOPROLOL TARTRATE 25 MG TABLET PO (08:10)
== END 2024-12-17 12:02 | disposition home or self-care (01) | DRG 93 ==
LOC: SERX 17:42 → SERHOLD 19:08 → S2NX 21:40
PROVIDERS: Psychiatry & Neurology Neurology; Admitting Provider Internal Medicine; Emergency Provider Family Medicine; PCP Nurse Practitioner; Visit Provider Internal Medicine
DX: R29.810 Facial weakness (principal); F03.90 Unspecified dementia, unspecified severity, without behavioral disturbance, psychotic disturbance, mood disturbance, and anxiety; I25.10 Atherosclerotic heart disease of native coronary artery without angina pectoris; I11.0 Hypertensive heart disease with heart failure; J44.9 Chronic obstructive pulmonary disease, unspecified; F17.210 Nicotine dependence, cigarettes, uncomplicated; I50.9 Heart failure, unspecified; Z99.81 Dependence on supplemental oxygen; Z79.02 Long term (current) use of antithrombotics/antiplatelets; I70.8 Atherosclerosis of other arteries; Z86.73 Personal history of transient ischemic attack (TIA), and cerebral infarction without residual deficits; Z71.6 Tobacco abuse counseling; Z79.83 Long term (current) use of bisphosphonates; Z79.899 Other long term (current) drug therapy; Z88.1 Allergy status to other antibiotic agents
CPT/HCPCS: 36415; 70450; 70496; 70498; 70553; 80053; 80061; 80307; 80320; 81001; 82306; 82607; 83036; 83735; 83880; 84100; 84443; 84484; 85025; 85610; 85730; 86780; 87086; 90686; 92610; 93005; 93306; 94640; 94664; 96360; 96361; 97162; 99284; A4216; A4649; A9270; A9577; J1644; J2358; J7030; Q9967; G0480; J2359; J9060